=== PATIENT | female | born 1935 | race Caucasian/White ===

== ENCOUNTER 2018-01-22 08:50 | Day surgery (SDC) | payer OTHER ==
[~2018-01-22] VITALS: Ht 149.9 cm; Wt 47.0 kg
[~2018-01-22 08:50] MED LIST: ALEN70 PO; ASPI81EC PO; ATEN100 PO; CALCAVITD PO; CARV3.125 PO; CELE200 PO; CEPH500 PO; CHOL10002 PO; CIPR500 PO; DULO30 PO; ELIQUIS2.5 MG PO; I-CAPS WITH LU1 EACH PO; LOVA20 PO; LOW DOSE ASPIRI81 MG PO; Lovastatin20 MG PO; NIFE30ER PO; OMEP20ER PO; Prozac40 MG PO; SPIR25 PO; TROSPIUM CHLORI20 MG PO; WARF5 PO
[2018-01-22 09:30] LABS: BASOPHILS ABSOLUTE AUTO 0.03 K/mm3 (0.00-0.23); BASOPHILS PERCENT AUTO 0 % (0-2); EOSINOPHILS ABSOLUTE AUTO 0.21 K/mm3 (0.00-0.68); EOSINOPHILS PERCENT AUTO 3 % (0-6); Hematocrit 32.2 % (33.0-51.0); Hemoglobin 10.1 g/dL (11.5-16.0); IMMATURE GRAN ABSOLUTE AUTO 0.02 K/mm3 (0.00-0.10); IMMATURE GRAN PERCENT AUTO 0 % (0-1); LYMPHOCYTES ABSOLUTE AUTO 3.14 K/mm3 (0.84-5.20); LYMPHOCYTES PERCENT AUTO 37 % (21-46); MONOCYTES ABSOLUTE AUTO 0.77 K/mm3 (0.16-1.47); MONOCYTES PERCENT AUTO 9 % (4-13); Mean Corpuscular HGB 28.6 pg (26.0-34.0); Mean Corpuscular HGB Conc 31.4 g/dL (31.5-36.5); Mean Corpuscular Volume 91 fL (80-100); Mean Platelet Volume 10.2 fL (9.1-12.4); NEUTROPHILS ABSOLUTE AUTO 4.23 K/mm3 (1.96-9.15); NEUTROPHILS PERCENT AUTO 50 % (41-73); Platelet Count 339 K/mm3 (150-400); RDW Coefficient Variation 13.4 % (11.7-14.2); RDW Standard Deviation 44.4 fL (35.1-46.3); Red Blood Cell Count 3.53 M/mm3 (3.80-5.20)
[2018-01-22 09:41] LABS: International Normalized Ratio 1.02; Prothrombin Time Results 10.6 Sec (9.7-11.5)
[2018-01-22 10:17] LABS: Anion Gap 6 mmol/L (6-16); Blood Urea Nitrogen 21 mg/dL (8-24); Bun/Creatinine Ratio 24.2 (12.0-20.0); CO2, Blood 29 mmol/L (21-32); Calcium, Blood 8.6 mg/dL (8.5-10.1); Chloride, Blood 108 mmol/L (98-108); Creatinine, Blood 0.87 mg/dL (0.40-1.00); Glomerular Filtration Rate >60 (60-); Glucose, Blood 112 mg/dL (70-99); Magnesium, Blood 1.9 mg/dL (1.6-2.4); Potassium, Blood 4.1 mmol/L (3.5-5.5); Sodium, Blood 143 mmol/L (136-145)
[2018-01-22] MEDS ORDERED: Prilosec Otc20 MG PO (11:03)
[2018-01-22] MEDS ORDERED: Amiodarone HCl200 MG PO (12:31)
[2018-02-23] MEDS ORDERED: TROSPIUM CHLORI20 MG PO (13:02)
[2018-02-23] MEDS ORDERED: CELE200 PO (13:03)
== END 2018-01-22 13:18 | disposition home or self-care (01) ==
LOC: MHTC 08:50
PROVIDERS: Internal Medicine Cardiovascular Disease
PROC: 5A2204Z Restoration of Cardiac Rhythm, Single (ICD-10-PCS; principal; 2018-01-22)
DX: I48.92 Unspecified atrial flutter (principal); Z86.73 Personal history of transient ischemic attack (TIA), and cerebral infarction without residual deficits; I10 Essential (primary) hypertension
CPT/HCPCS: 36415; 80048; 83735; 85025; 85610; 92960; 93005; 93010; 93312; 93325; J0282; J2250; J7120

== ENCOUNTER 2018-02-20 17:11 | Emergency (ER) | payer OTHER ==
[~2018-02-20] VITALS: Ht 144.8 cm; Wt 43.1 kg
[~2018-02-20 17:11] MED LIST changes: +Amiodarone HCl200 MG PO; +Prilosec Otc20 MG PO
[2018-02-20 18:18] LABS: BASOPHILS ABSOLUTE AUTO 0.04 K/mm3 (0.00-0.23); BASOPHILS PERCENT AUTO 0 % (0-2); EOSINOPHILS ABSOLUTE AUTO 0.33 K/mm3 (0.00-0.68); EOSINOPHILS PERCENT AUTO 3 % (0-6); IMMATURE GRAN ABSOLUTE AUTO 0.04 K/mm3 (0.00-0.10); IMMATURE GRAN PERCENT AUTO 0 % (0-1); LYMPHOCYTES ABSOLUTE AUTO 2.17 K/mm3 (0.84-5.20); LYMPHOCYTES PERCENT AUTO 21 % (21-46); MONOCYTES ABSOLUTE AUTO 1.03 K/mm3 (0.16-1.47); MONOCYTES PERCENT AUTO 10 % (4-13); Mean Corpuscular HGB 25.4 pg (26.0-34.0); Mean Corpuscular Volume 85 fL (80-100); Mean Platelet Volume 9.8 fL (9.1-12.4); NEUTROPHILS ABSOLUTE AUTO 6.73 K/mm3 (1.96-9.15); NEUTROPHILS PERCENT AUTO 65 % (41-73); Platelet Count 521 K/mm3 (150-400); RDW Coefficient Variation 13.8 % (11.7-14.2); RDW Standard Deviation 43.2 fL (35.1-46.3); Red Blood Cell Count 3.55 M/mm3 (3.80-5.20); White Blood Cell Count 10.34 K/mm3 (4.00-11.30)
[2018-02-20 18:31] LABS: Alanine Aminotransfer (ALT/SGP 14 U/L (12-78); Albumin, Blood 3.5 g/dL (3.4-5.0); Albumin/Globulin Ratio 0.9 (0.8-1.8); Alk Phos 137 U/L (50-136); Anion Gap 10 mmol/L (6-16); Aspartate Aminotrans (AST/SGOT 17 U/L (12-37); Bilirubin, Total 0.3 mg/dL (0.1-1.0); Blood Urea Nitrogen 18 mg/dL (8-24); Bun/Creatinine Ratio 16.5 (12.0-20.0); CO2, Blood 25 mmol/L (21-32); Calcium, Blood 8.7 mg/dL (8.5-10.1); Chloride, Blood 104 mmol/L (98-108); Creatinine, Blood 1.09 mg/dL (0.40-1.00); Globulin, Blood 3.9 g/dL (2.2-4.0); Glomerular Filtration Rate 51 (60-); Glucose, Blood 125 mg/dL (70-99); Potassium, Blood 3.9 mmol/L (3.5-5.5); Sodium, Blood 139 mmol/L (136-145); Total Protein, Blood 7.4 g/dL (6.4-8.2); Troponin I <0.015 ng/mL (0.000-0.040)
[2018-02-23] MEDS ORDERED: TROSPIUM CHLORI20 MG PO (13:02)
[2018-02-23] MEDS ORDERED: CELE200 PO (13:03)
== END 2018-02-20 22:29 | disposition left against medical advice (07) ==
LOC: ER 17:11
PROVIDERS: Emergency Medicine
DX: Z53.21 Procedure and treatment not carried out due to patient leaving prior to being seen by health care provider (principal)
CPT/HCPCS: 36415; 71046; 80053; 83880; 84484; 85025; 93005; 93010; 99283

== ENCOUNTER 2018-02-26 09:42 | Day surgery (SDC) | payer OTHER ==
[~2018-02-26] VITALS: Ht 147.3 cm; Wt 45.0 kg
== END 2018-02-26 23:19 | disposition home or self-care (01) ==
LOC: MHTC 09:42
PROC: 5A2204Z Restoration of Cardiac Rhythm, Single (ICD-10-PCS; principal; 2018-02-26)
DX: I48.91 Unspecified atrial fibrillation (principal); Z79.01 Long term (current) use of anticoagulants; I10 Essential (primary) hypertension; E78.5 Hyperlipidemia, unspecified
CPT/HCPCS: 92960; 93005; 93010; J7030

== ENCOUNTER 2018-03-23 18:08 | Inpatient (IN) | payer OTHER ==
[~2018-03-23] VITALS: Ht 154.9 cm; Wt 39.0 kg
[2018-03-23 18:34] LABS: PO2 Arterial 60.8 mmHg (80-100); pH Blood Arterial 7.52 (7.35-7.45)
[2018-03-23 18:35] LABS: PCO2 Arterial 19.3 mmHg (35-45)
[2018-03-23] MEDS ORDERED: Amiodarone HCl200 MG PO (18:36)
[2018-03-23] MEDS ORDERED: ABAT250V (18:37)
[2018-03-23] MEDS ORDERED: METO25ER PO (18:37)
[2018-03-23 19:13] LABS: Influenza A Negative (NEGATIVE); Influenza B Negative (NEGATIVE)
[2018-03-23 19:38] LABS: BASOPHILS ABSOLUTE AUTO 0.03 K/mm3 (0.00-0.23); BASOPHILS PERCENT AUTO 0 % (0-2); EOSINOPHILS PERCENT AUTO 0 % (0-6); Hemoglobin 6.8 g/dL (11.5-16.0); IMMATURE GRAN ABSOLUTE AUTO 0.19 K/mm3 (0.00-0.10); IMMATURE GRAN PERCENT AUTO 1 % (0-1); LYMPHOCYTES ABSOLUTE AUTO 1.49 K/mm3 (0.84-5.20); LYMPHOCYTES PERCENT AUTO 8 % (21-46); MONOCYTES ABSOLUTE AUTO 1.53 K/mm3 (0.16-1.47); MONOCYTES PERCENT AUTO 8 % (4-13); Mean Corpuscular HGB Conc 28.3 g/dL (31.5-36.5); Mean Corpuscular Volume 78 fL (80-100); Mean Platelet Volume 10.7 fL (9.1-12.4); NEUTROPHILS ABSOLUTE AUTO 15.18 K/mm3 (1.96-9.15); NEUTROPHILS PERCENT AUTO 82 % (41-73); NRBC ABSOLUTE 0.19 K/mm3 (0.00-0.02); Platelet Count 557 K/mm3 (150-400); RDW Coefficient Variation 16.6 % (11.7-14.2); RDW Standard Deviation 46.5 fL (35.1-46.3); Red Blood Cell Count 3.09 M/mm3 (3.80-5.20); White Blood Cell Count 18.42 K/mm3 (4.00-11.30)
[2018-03-23 19:52] LABS: Albumin, Blood 2.8 g/dL (3.4-5.0); Albumin/Globulin Ratio 0.7 (0.8-1.8); Bilirubin, Total 0.9 mg/dL (0.1-1.0); Bun/Creatinine Ratio 23.6 (12.0-20.0); Calcium, Blood 8.2 mg/dL (8.5-10.1); Creatinine, Blood 1.06 mg/dL (0.40-1.00); Magnesium, Blood 2.2 mg/dL (1.6-2.4); Potassium, Blood 4.2 mmol/L (3.5-5.5); Total Protein, Blood 6.8 g/dL (6.4-8.2); Troponin I 0.024 ng/mL (0.000-0.040)
[2018-03-23 19:58] LABS: Source, Urine Catheter
[2018-03-23 20:06] LABS: Bilirubin, Urine Neg (Neg); Blood, Urine Neg (Neg); Glucose Qualitative, Urine Neg (Neg); Ketones, Urine Neg (Neg); Leukocyte Esterase, Urine Neg (Neg); Nitrite, Urine Pos (Neg); Protein, Urine 2+ (Neg); Urobilinogen, Urine 1+ (Normal)
[2018-03-23 20:14] LABS: Appearance, Urine Hazy (Clear); Color, Urine Yellow (P-Yellow); Red Blood Cells, Urine Not Seen /hpf (0-2)
[2018-03-23 20:15] LABS: Amorphous Mod (0-Heavy); Bacteria Many /hpf; Squamous Epithelial Cells Not Seen /hpf (Few)
[2018-03-23 20:52] LABS: International Normalized Ratio 1.53; Prothrombin Time Results 16.1 Sec (9.7-11.5)
[2018-03-23 21:44] LABS: Percent Saturation 2.7 % (15.0-50.0)
[2018-03-24 05:42] LABS: BASOPHILS ABSOLUTE AUTO 0.02 K/mm3 (0.00-0.23); BASOPHILS PERCENT AUTO 0 % (0-2); EOSINOPHILS PERCENT AUTO 0 % (0-6); Hematocrit 29.3 % (33.0-51.0); Hemoglobin 9.1 g/dL (11.5-16.0); IMMATURE GRAN ABSOLUTE AUTO 0.12 K/mm3 (0.00-0.10); IMMATURE GRAN PERCENT AUTO 1 % (0-1); LYMPHOCYTES ABSOLUTE AUTO 1.58 K/mm3 (0.84-5.20); LYMPHOCYTES PERCENT AUTO 9 % (21-46); MONOCYTES ABSOLUTE AUTO 1.29 K/mm3 (0.16-1.47); MONOCYTES PERCENT AUTO 7 % (4-13); Mean Corpuscular HGB 23.6 pg (26.0-34.0); Mean Corpuscular HGB Conc 31.1 g/dL (31.5-36.5); Mean Corpuscular Volume 76 fL (80-100); Mean Platelet Volume 10.2 fL (9.1-12.4); NEUTROPHILS ABSOLUTE AUTO 15.09 K/mm3 (1.96-9.15); NEUTROPHILS PERCENT AUTO 83 % (41-73); NRBC ABSOLUTE 0.17 K/mm3 (0.00-0.02); NRBC Auto 0.9 /100 WBC (0.0-0.2); Platelet Count 403 K/mm3 (150-400); RDW Coefficient Variation 16.5 % (11.7-14.2); RDW Standard Deviation 45.2 fL (35.1-46.3); Red Blood Cell Count 3.85 M/mm3 (3.80-5.20)
[2018-03-24 06:02] LABS: Albumin, Blood 2.6 g/dL (3.4-5.0); Albumin/Globulin Ratio 0.7 (0.8-1.8); Bilirubin, Total 2.8 mg/dL (0.1-1.0); Calcium, Blood 7.8 mg/dL (8.5-10.1); Globulin, Blood 3.7 g/dL (2.2-4.0); Magnesium, Blood 2.5 mg/dL (1.6-2.4); Phosphorus, Blood 3.8 mg/dL (2.5-4.9); Potassium, Blood 4.1 mmol/L (3.5-5.5); Total Protein, Blood 6.3 g/dL (6.4-8.2)
[2018-03-24 13:17] LABS: Percent Saturation 47.9 % (15.0-50.0)
[2018-03-25 08:58] LABS: PCO2 Arterial 31.6 mmHg (35-45); PO2 Arterial 57.8 mmHg (80-100); pH Blood Arterial 7.44 (7.35-7.45)
[2018-03-25 09:22] LABS: Hematocrit 32.2 % (33.0-51.0); Hemoglobin 9.6 g/dL (11.5-16.0); Mean Corpuscular HGB 23.6 pg (26.0-34.0); Mean Corpuscular HGB Conc 29.8 g/dL (31.5-36.5); Mean Platelet Volume 10.5 fL (9.1-12.4); NRBC ABSOLUTE 0.18 K/mm3 (0.00-0.02); NRBC Auto 0.9 /100 WBC (0.0-0.2); Platelet Count 392 K/mm3 (150-400); RDW Coefficient Variation 17.2 % (11.7-14.2); RDW Standard Deviation 48.5 fL (35.1-46.3); Red Blood Cell Count 4.06 M/mm3 (3.80-5.20); White Blood Cell Count 21.04 K/mm3 (4.00-11.30)
[2018-03-25 09:23] LABS: Mean Corpuscular Volume 79 fL (80-100)
[2018-03-25 09:38] LABS: Magnesium, Blood 2.4 mg/dL (1.6-2.4)
[2018-03-25 09:39] LABS: Albumin, Blood 2.7 g/dL (3.4-5.0); Anion Gap 11 mmol/L (6-16); Blood Urea Nitrogen 37 mg/dL (8-24); Bun/Creatinine Ratio 39.2 (12.0-20.0); CO2, Blood 22 mmol/L (21-32); Calcium, Blood 7.9 mg/dL (8.5-10.1); Chloride, Blood 112 mmol/L (98-108); Creatinine, Blood 0.94 mg/dL (0.40-1.00); Glomerular Filtration Rate 60 (60-); Glucose, Blood 135 mg/dL (70-99); Phosphorus, Blood 2.7 mg/dL (2.5-4.9); Potassium, Blood 3.6 mmol/L (3.5-5.5); Sodium, Blood 145 mmol/L (136-145)
[2018-03-25 18:10] LABS: PCO2 Arterial 29.8 mmHg (35-45); PO2 Arterial 50.8 mmHg (80-100)
[2018-03-26 21:21] LABS: Vancomycin, Trough 4.5 ug/mL (5.0-10.0)
[2018-03-27 04:08] LABS: Hemoglobin 10.4 g/dL (11.5-16.0); Mean Corpuscular HGB 23.1 pg (26.0-34.0); Mean Corpuscular HGB Conc 29.7 g/dL (31.5-36.5); Mean Corpuscular Volume 78 fL (80-100); Mean Platelet Volume 10.6 fL (9.1-12.4); NRBC ABSOLUTE 0.02 K/mm3 (0.00-0.02); NRBC Auto 0.1 /100 WBC (0.0-0.2); Platelet Count 390 K/mm3 (150-400); RDW Coefficient Variation 18.8 % (11.7-14.2); RDW Standard Deviation 49.3 fL (35.1-46.3); Red Blood Cell Count 4.51 M/mm3 (3.80-5.20); White Blood Cell Count 14.29 K/mm3 (4.00-11.30)
[2018-03-27 04:26] LABS: Anion Gap 9 mmol/L (6-16); Blood Urea Nitrogen 30 mg/dL (8-24); Bun/Creatinine Ratio 35.5 (12.0-20.0); CO2, Blood 29 mmol/L (21-32); Calcium, Blood 7.9 mg/dL (8.5-10.1); Chloride, Blood 108 mmol/L (98-108); Creatinine, Blood 0.85 mg/dL (0.40-1.00); Glomerular Filtration Rate >60 (60-); Glucose, Blood 94 mg/dL (70-99); Potassium, Blood 2.6 mmol/L (3.5-5.5); Sodium, Blood 146 mmol/L (136-145)
[2018-03-28 04:08] LABS: Hematocrit 33.7 % (33.0-51.0); Hemoglobin 9.9 g/dL (11.5-16.0); Mean Corpuscular HGB 23.1 pg (26.0-34.0); Mean Corpuscular HGB Conc 29.4 g/dL (31.5-36.5); Mean Corpuscular Volume 79 fL (80-100); Mean Platelet Volume 10.3 fL (9.1-12.4); NRBC ABSOLUTE 0.02 K/mm3 (0.00-0.02); NRBC Auto 0.1 /100 WBC (0.0-0.2); Platelet Count 380 K/mm3 (150-400); RDW Coefficient Variation 18.9 % (11.7-14.2); RDW Standard Deviation 51.3 fL (35.1-46.3); Red Blood Cell Count 4.28 M/mm3 (3.80-5.20); White Blood Cell Count 14.14 K/mm3 (4.00-11.30)
[2018-03-28 04:40] LABS: Anion Gap 7 mmol/L (6-16); Blood Urea Nitrogen 27 mg/dL (8-24); Bun/Creatinine Ratio 34.1 (12.0-20.0); CO2, Blood 28 mmol/L (21-32); Chloride, Blood 112 mmol/L (98-108); Creatinine, Blood 0.79 mg/dL (0.40-1.00); Glomerular Filtration Rate >60 (60-); Glucose, Blood 104 mg/dL (70-99); Potassium, Blood 3.5 mmol/L (3.5-5.5); Sodium, Blood 147 mmol/L (136-145)
[2018-03-28 10:50] LABS: Vancomycin, Trough 14.6 ug/mL (5.0-10.0)
[2018-03-29 10:33] LABS: Creatinine, Blood 0.72 mg/dL (0.40-1.00); Vancomycin, Trough 17.1 ug/mL (5.0-10.0)
[2018-03-29 12:10] LABS: PCO2 Arterial 33.8 mmHg (35-45); PO2 Arterial 53.8 mmHg (80-100)
[2018-03-30 06:08] LABS: Hematocrit 32.8 % (33.0-51.0); Hemoglobin 9.6 g/dL (11.5-16.0); Mean Corpuscular HGB 23.3 pg (26.0-34.0); Mean Corpuscular HGB Conc 29.3 g/dL (31.5-36.5); Mean Corpuscular Volume 80 fL (80-100); Mean Platelet Volume 10.3 fL (9.1-12.4); Platelet Count 342 K/mm3 (150-400); RDW Coefficient Variation 19.4 % (11.7-14.2); RDW Standard Deviation 54.9 fL (35.1-46.3); Red Blood Cell Count 4.12 M/mm3 (3.80-5.20); White Blood Cell Count 11.78 K/mm3 (4.00-11.30)
[2018-03-30 06:14] LABS: Anion Gap 7 mmol/L (6-16); Blood Urea Nitrogen 25 mg/dL (8-24); Bun/Creatinine Ratio 37.7 (12.0-20.0); CO2, Blood 26 mmol/L (21-32); Calcium, Blood 8.1 mg/dL (8.5-10.1); Chloride, Blood 109 mmol/L (98-108); Creatinine, Blood 0.66 mg/dL (0.40-1.00); Glomerular Filtration Rate >60 (60-); Glucose, Blood 140 mg/dL (70-99); Potassium, Blood 4.3 mmol/L (3.5-5.5); Sodium, Blood 142 mmol/L (136-145)
[2018-03-31 03:53] LABS: BASOPHILS ABSOLUTE AUTO 0.02 K/mm3 (0.00-0.23); BASOPHILS PERCENT AUTO 0 % (0-2); EOSINOPHILS ABSOLUTE AUTO 0.01 K/mm3 (0.00-0.68); EOSINOPHILS PERCENT AUTO 0 % (0-6); Hematocrit 32.9 % (33.0-51.0); Hemoglobin 9.7 g/dL (11.5-16.0); IMMATURE GRAN ABSOLUTE AUTO 0.26 K/mm3 (0.00-0.10); IMMATURE GRAN PERCENT AUTO 1 % (0-1); LYMPHOCYTES ABSOLUTE AUTO 1.55 K/mm3 (0.84-5.20); LYMPHOCYTES PERCENT AUTO 7 % (21-46); MONOCYTES ABSOLUTE AUTO 1.21 K/mm3 (0.16-1.47); MONOCYTES PERCENT AUTO 5 % (4-13); Mean Corpuscular HGB 22.9 pg (26.0-34.0); Mean Corpuscular HGB Conc 29.5 g/dL (31.5-36.5); Mean Corpuscular Volume 78 fL (80-100); Mean Platelet Volume 10.7 fL (9.1-12.4); NEUTROPHILS ABSOLUTE AUTO 19.55 K/mm3 (1.96-9.15); NEUTROPHILS PERCENT AUTO 86 % (41-73); Platelet Count 426 K/mm3 (150-400); RDW Coefficient Variation 19.6 % (11.7-14.2); RDW Standard Deviation 53.1 fL (35.1-46.3); Red Blood Cell Count 4.23 M/mm3 (3.80-5.20)
[2018-03-31 04:09] LABS: Albumin, Blood 1.8 g/dL (3.4-5.0); Anion Gap 7 mmol/L (6-16); Blood Urea Nitrogen 31 mg/dL (8-24); Bun/Creatinine Ratio 42.4 (12.0-20.0); CO2, Blood 26 mmol/L (21-32); Chloride, Blood 110 mmol/L (98-108); Creatinine, Blood 0.73 mg/dL (0.40-1.00); Glomerular Filtration Rate >60 (60-); Glucose, Blood 124 mg/dL (70-99); Phosphorus, Blood 3.4 mg/dL (2.5-4.9); Potassium, Blood 3.8 mmol/L (3.5-5.5); Sodium, Blood 143 mmol/L (136-145)
[2018-03-31 10:39] LABS: Vancomycin, Trough 20.9 ug/mL (5.0-10.0)
[2018-04-01 06:09] LABS: BASOPHILS ABSOLUTE AUTO 0.03 K/mm3 (0.00-0.23); BASOPHILS PERCENT AUTO 0 % (0-2); EOSINOPHILS ABSOLUTE AUTO 0.03 K/mm3 (0.00-0.68); EOSINOPHILS PERCENT AUTO 0 % (0-6); Hemoglobin 9.8 g/dL (11.5-16.0); IMMATURE GRAN ABSOLUTE AUTO 0.25 K/mm3 (0.00-0.10); IMMATURE GRAN PERCENT AUTO 1 % (0-1); LYMPHOCYTES ABSOLUTE AUTO 1.54 K/mm3 (0.84-5.20); LYMPHOCYTES PERCENT AUTO 7 % (21-46); MONOCYTES PERCENT AUTO 4 % (4-13); Mean Corpuscular HGB 23.4 pg (26.0-34.0); Mean Corpuscular HGB Conc 29.7 g/dL (31.5-36.5); Mean Corpuscular Volume 79 fL (80-100); Mean Platelet Volume 10.1 fL (9.1-12.4); NEUTROPHILS ABSOLUTE AUTO 18.05 K/mm3 (1.96-9.15); NEUTROPHILS PERCENT AUTO 87 % (41-73); Platelet Count 440 K/mm3 (150-400); RDW Coefficient Variation 19.7 % (11.7-14.2); RDW Standard Deviation 55.5 fL (35.1-46.3); Red Blood Cell Count 4.19 M/mm3 (3.80-5.20)
[2018-04-01 06:23] LABS: Albumin, Blood 1.8 g/dL (3.4-5.0); Anion Gap 7 mmol/L (6-16); Blood Urea Nitrogen 33 mg/dL (8-24); Bun/Creatinine Ratio 46.6 (12.0-20.0); CO2, Blood 26 mmol/L (21-32); Calcium, Blood 8.1 mg/dL (8.5-10.1); Chloride, Blood 112 mmol/L (98-108); Creatinine, Blood 0.71 mg/dL (0.40-1.00); Glomerular Filtration Rate >60 (60-); Glucose, Blood 92 mg/dL (70-99); Phosphorus, Blood 2.8 mg/dL (2.5-4.9); Potassium, Blood 3.5 mmol/L (3.5-5.5); Sodium, Blood 145 mmol/L (136-145)
[2018-04-02 05:09] LABS: BASOPHILS ABSOLUTE AUTO 0.02 K/mm3 (0.00-0.23); BASOPHILS PERCENT AUTO 0 % (0-2); EOSINOPHILS ABSOLUTE AUTO 0.04 K/mm3 (0.00-0.68); EOSINOPHILS PERCENT AUTO 0 % (0-6); Hematocrit 32.7 % (33.0-51.0); Hemoglobin 9.6 g/dL (11.5-16.0); IMMATURE GRAN ABSOLUTE AUTO 0.19 K/mm3 (0.00-0.10); IMMATURE GRAN PERCENT AUTO 1 % (0-1); LYMPHOCYTES ABSOLUTE AUTO 1.48 K/mm3 (0.84-5.20); LYMPHOCYTES PERCENT AUTO 9 % (21-46); MONOCYTES ABSOLUTE AUTO 0.88 K/mm3 (0.16-1.47); MONOCYTES PERCENT AUTO 5 % (4-13); Mean Corpuscular HGB 22.8 pg (26.0-34.0); Mean Corpuscular HGB Conc 29.4 g/dL (31.5-36.5); Mean Corpuscular Volume 78 fL (80-100); Mean Platelet Volume 10.2 fL (9.1-12.4); NEUTROPHILS ABSOLUTE AUTO 13.83 K/mm3 (1.96-9.15); NEUTROPHILS PERCENT AUTO 84 % (41-73); Platelet Count 452 K/mm3 (150-400); RDW Coefficient Variation 20.1 % (11.7-14.2); RDW Standard Deviation 55.4 fL (35.1-46.3); Red Blood Cell Count 4.21 M/mm3 (3.80-5.20); White Blood Cell Count 16.44 K/mm3 (4.00-11.30)
[2018-04-02 05:24] LABS: Albumin, Blood 1.8 g/dL (3.4-5.0); Anion Gap 7 mmol/L (6-16); Blood Urea Nitrogen 28 mg/dL (8-24); Bun/Creatinine Ratio 42.7 (12.0-20.0); CO2, Blood 26 mmol/L (21-32); Calcium, Blood 7.8 mg/dL (8.5-10.1); Chloride, Blood 111 mmol/L (98-108); Creatinine, Blood 0.66 mg/dL (0.40-1.00); Glomerular Filtration Rate >60 (60-); Glucose, Blood 89 mg/dL (70-99); Phosphorus, Blood 2.8 mg/dL (2.5-4.9); Potassium, Blood 3.7 mmol/L (3.5-5.5); Sodium, Blood 144 mmol/L (136-145)
[2018-04-03 04:35] LABS: BASOPHILS ABSOLUTE AUTO 0.02 K/mm3 (0.00-0.23); BASOPHILS PERCENT AUTO 0 % (0-2); EOSINOPHILS ABSOLUTE AUTO 0.02 K/mm3 (0.00-0.68); EOSINOPHILS PERCENT AUTO 0 % (0-6); Hematocrit 33.4 % (33.0-51.0); Hemoglobin 9.8 g/dL (11.5-16.0); IMMATURE GRAN ABSOLUTE AUTO 0.21 K/mm3 (0.00-0.10); IMMATURE GRAN PERCENT AUTO 1 % (0-1); LYMPHOCYTES ABSOLUTE AUTO 1.43 K/mm3 (0.84-5.20); LYMPHOCYTES PERCENT AUTO 8 % (21-46); MONOCYTES ABSOLUTE AUTO 1.01 K/mm3 (0.16-1.47); MONOCYTES PERCENT AUTO 6 % (4-13); Mean Corpuscular HGB 22.7 pg (26.0-34.0); Mean Corpuscular HGB Conc 29.3 g/dL (31.5-36.5); Mean Corpuscular Volume 77 fL (80-100); Mean Platelet Volume 10.1 fL (9.1-12.4); NEUTROPHILS ABSOLUTE AUTO 15.01 K/mm3 (1.96-9.15); NEUTROPHILS PERCENT AUTO 85 % (41-73); Platelet Count 498 K/mm3 (150-400); RDW Coefficient Variation 19.9 % (11.7-14.2); RDW Standard Deviation 54.3 fL (35.1-46.3); Red Blood Cell Count 4.32 M/mm3 (3.80-5.20)
[2018-04-03 14:10] LABS: ANA DIRECT Negative (Negative); ANTIMYELOPEROXIDASE (MPO) ABS <9.0 U/mL (0.0-9.0); ANTIPROTEINASE 3 (PR-3) ABS <3.5 U/mL (0.0-3.5); ATYPICAL PANCA <1:20 titer (Neg:<1:20); CYTOPLASMIC (C-ANCA) <1:20 titer (Neg:<1:20); PERINUCLEAR (P-ANCA) <1:20 titer (Neg:<1:20)
[2018-04-05 03:56] LABS: Hematocrit 33.1 % (33.0-51.0); Hemoglobin 9.8 g/dL (11.5-16.0); Mean Corpuscular HGB Conc 29.6 g/dL (31.5-36.5); Mean Corpuscular Volume 78 fL (80-100); Platelet Count 588 K/mm3 (150-400); RDW Coefficient Variation 19.9 % (11.7-14.2); RDW Standard Deviation 55.3 fL (35.1-46.3); Red Blood Cell Count 4.27 M/mm3 (3.80-5.20); White Blood Cell Count 16.56 K/mm3 (4.00-11.30)
[2018-04-05 04:19] LABS: Anion Gap 6 mmol/L (6-16); Blood Urea Nitrogen 34 mg/dL (8-24); Bun/Creatinine Ratio 45.5 (12.0-20.0); CO2, Blood 28 mmol/L (21-32); Calcium, Blood 7.7 mg/dL (8.5-10.1); Chloride, Blood 107 mmol/L (98-108); Creatinine, Blood 0.75 mg/dL (0.40-1.00); Glomerular Filtration Rate >60 (60-); Glucose, Blood 104 mg/dL (70-99); Potassium, Blood 3.9 mmol/L (3.5-5.5); Sodium, Blood 141 mmol/L (136-145)
[2018-04-05 19:00] LABS: Adenovirus Not Detected (NOT DETECT); Bordetella pertussis Not Detected (NOT DETECT); Chlamydophila pneumoniae Not Detected (NOT DETECT); Coronavirus 229E Not Detected (NOT DETECT); Coronavirus HKU1 Not Detected (NOT DETECT); Coronavirus NL63 Not Detected (NOT DETECT); Coronavirus OC43 Not Detected (NOT DETECT); Human Metapneumovirus Not Detected (NOT DETECT); Human Rhinovirus/Enterovirus Not Detected (NOT DETECT); Influenza A/2009-H1 Not Detected (NOT DETECT); Influenza A/H1 Not Detected (NOT DETECT); Influenza A/H3 Not Detected (NOT DETECT); Influenza B Not Detected (NOT DETECT); Mycoplasma pneumoniae Not Detected (NOT DETECT); Parainfluenza Virus 1 Not Detected (NOT DETECT); Parainfluenza Virus 2 Not Detected (NOT DETECT); Parainfluenza Virus 3 Not Detected (NOT DETECT); Parainfluenza Virus 4 Not Detected (NOT DETECT); Respiratory Syncytial Virus Not Detected (NOT DETECT)
[2018-04-05 22:25] LABS: Influenza A Not Detected (NOT DETECT)
[2018-04-06 04:48] LABS: PCO2 Arterial 40.2 mmHg (35-45); PO2 Arterial 61.6 mmHg (80-100); pH Blood Arterial 7.47 (7.35-7.45)
[2018-04-06 04:54] LABS: BASOPHILS ABSOLUTE AUTO 0.02 K/mm3 (0.00-0.23); BASOPHILS PERCENT AUTO 0 % (0-2); EOSINOPHILS ABSOLUTE AUTO 0.01 K/mm3 (0.00-0.68); EOSINOPHILS PERCENT AUTO 0 % (0-6); Hematocrit 33.2 % (33.0-51.0); IMMATURE GRAN ABSOLUTE AUTO 0.27 K/mm3 (0.00-0.10); IMMATURE GRAN PERCENT AUTO 2 % (0-1); LYMPHOCYTES ABSOLUTE AUTO 1.38 K/mm3 (0.84-5.20); LYMPHOCYTES PERCENT AUTO 9 % (21-46); MONOCYTES ABSOLUTE AUTO 0.73 K/mm3 (0.16-1.47); MONOCYTES PERCENT AUTO 5 % (4-13); Mean Corpuscular HGB 23.5 pg (26.0-34.0); Mean Corpuscular HGB Conc 30.1 g/dL (31.5-36.5); Mean Corpuscular Volume 78 fL (80-100); NEUTROPHILS ABSOLUTE AUTO 13.26 K/mm3 (1.96-9.15); NEUTROPHILS PERCENT AUTO 85 % (41-73); Platelet Count 552 K/mm3 (150-400); RDW Coefficient Variation 20.6 % (11.7-14.2); RDW Standard Deviation 56.4 fL (35.1-46.3); Red Blood Cell Count 4.25 M/mm3 (3.80-5.20); White Blood Cell Count 15.67 K/mm3 (4.00-11.30)
[2018-04-06 06:13] LABS: Anion Gap 7 mmol/L (6-16); Blood Urea Nitrogen 33 mg/dL (8-24); Bun/Creatinine Ratio 42.7 (12.0-20.0); CO2, Blood 28 mmol/L (21-32); Calcium, Blood 8.1 mg/dL (8.5-10.1); Chloride, Blood 106 mmol/L (98-108); Creatinine, Blood 0.77 mg/dL (0.40-1.00); Glomerular Filtration Rate >60 (60-); Glucose, Blood 104 mg/dL (70-99); Potassium, Blood 5.1 mmol/L (3.5-5.5); Sodium, Blood 141 mmol/L (136-145)
[2018-04-07 04:55] LABS: Hematocrit 33.5 % (33.0-51.0); Mean Corpuscular HGB Conc 29.9 g/dL (31.5-36.5); Mean Corpuscular Volume 77 fL (80-100); Mean Platelet Volume 9.7 fL (9.1-12.4); Platelet Count 606 K/mm3 (150-400); RDW Coefficient Variation 20.1 % (11.7-14.2); RDW Standard Deviation 55.8 fL (35.1-46.3); Red Blood Cell Count 4.34 M/mm3 (3.80-5.20); White Blood Cell Count 18.66 K/mm3 (4.00-11.30)
[2018-04-07 05:19] LABS: Anion Gap 7 mmol/L (6-16); Blood Urea Nitrogen 30 mg/dL (8-24); Bun/Creatinine Ratio 36.1 (12.0-20.0); CO2, Blood 27 mmol/L (21-32); Calcium, Blood 7.7 mg/dL (8.5-10.1); Chloride, Blood 106 mmol/L (98-108); Creatinine, Blood 0.83 mg/dL (0.40-1.00); Glomerular Filtration Rate >60 (60-); Glucose, Blood 87 mg/dL (70-99); Potassium, Blood 4.2 mmol/L (3.5-5.5); Sodium, Blood 140 mmol/L (136-145)
[2018-04-08 04:07] LABS: BASOPHILS ABSOLUTE AUTO 0.02 K/mm3 (0.00-0.23); BASOPHILS PERCENT AUTO 0 % (0-2); EOSINOPHILS ABSOLUTE AUTO 0.02 K/mm3 (0.00-0.68); EOSINOPHILS PERCENT AUTO 0 % (0-6); Hematocrit 34.9 % (33.0-51.0); Hemoglobin 10.3 g/dL (11.5-16.0); IMMATURE GRAN PERCENT AUTO 1 % (0-1); LYMPHOCYTES ABSOLUTE AUTO 1.67 K/mm3 (0.84-5.20); LYMPHOCYTES PERCENT AUTO 11 % (21-46); MONOCYTES ABSOLUTE AUTO 0.89 K/mm3 (0.16-1.47); MONOCYTES PERCENT AUTO 6 % (4-13); Mean Corpuscular HGB 22.6 pg (26.0-34.0); Mean Corpuscular HGB Conc 29.5 g/dL (31.5-36.5); Mean Corpuscular Volume 77 fL (80-100); Mean Platelet Volume 9.9 fL (9.1-12.4); NEUTROPHILS PERCENT AUTO 82 % (41-73); Platelet Count 599 K/mm3 (150-400); RDW Coefficient Variation 20.9 % (11.7-14.2); RDW Standard Deviation 56.2 fL (35.1-46.3); Red Blood Cell Count 4.56 M/mm3 (3.80-5.20)
[2018-04-08 04:24] LABS: Anion Gap 5 mmol/L (6-16); Blood Urea Nitrogen 27 mg/dL (8-24); Bun/Creatinine Ratio 35.6 (12.0-20.0); CO2, Blood 27 mmol/L (21-32); Calcium, Blood 7.8 mg/dL (8.5-10.1); Chloride, Blood 106 mmol/L (98-108); Creatinine, Blood 0.76 mg/dL (0.40-1.00); Glomerular Filtration Rate >60 (60-); Glucose, Blood 93 mg/dL (70-99); Potassium, Blood 5.3 mmol/L (3.5-5.5); Sodium, Blood 138 mmol/L (136-145)
[2018-04-08 22:06] LABS: Source, Urine Clean Catch
[2018-04-08 22:12] LABS: Bilirubin, Urine Neg (Neg); Glucose Qualitative, Urine Neg (Neg); Ketones, Urine Neg (Neg); Nitrite, Urine Neg (Neg); Specific Gravity, Urine 1.015 (1.003-1.022); Urobilinogen, Urine NORM (Normal)
[2018-04-08 22:22] LABS: Blood, Urine 5+ (Neg); Leukocyte Esterase, Urine 1+ (Neg); Protein, Urine 2+ (Neg)
[2018-04-08 22:27] LABS: Appearance, Urine Hazy (Clear); Color, Urine Yellow (P-Yellow)
[2018-04-08 22:28] LABS: Bacteria Few /hpf; Red Blood Cells, Urine TNTC /hpf (0-2); Squamous Epithelial Cells Rare /hpf (Few); White Blood Cells, Urine 0-2 /hpf (0-5)
[2018-04-09 04:29] LABS: BASOPHILS ABSOLUTE AUTO 0.02 K/mm3 (0.00-0.23); BASOPHILS PERCENT AUTO 0 % (0-2); EOSINOPHILS ABSOLUTE AUTO 0.02 K/mm3 (0.00-0.68); EOSINOPHILS PERCENT AUTO 0 % (0-6); Hematocrit 34.8 % (33.0-51.0); Hemoglobin 10.4 g/dL (11.5-16.0); IMMATURE GRAN PERCENT AUTO 1 % (0-1); LYMPHOCYTES ABSOLUTE AUTO 1.59 K/mm3 (0.84-5.20); LYMPHOCYTES PERCENT AUTO 10 % (21-46); MONOCYTES ABSOLUTE AUTO 1.01 K/mm3 (0.16-1.47); MONOCYTES PERCENT AUTO 6 % (4-13); Mean Corpuscular HGB 23.1 pg (26.0-34.0); Mean Corpuscular HGB Conc 29.9 g/dL (31.5-36.5); Mean Corpuscular Volume 77 fL (80-100); Mean Platelet Volume 9.6 fL (9.1-12.4); NEUTROPHILS ABSOLUTE AUTO 13.76 K/mm3 (1.96-9.15); NEUTROPHILS PERCENT AUTO 83 % (41-73); Platelet Count 567 K/mm3 (150-400); RDW Coefficient Variation 20.7 % (11.7-14.2); RDW Standard Deviation 57.1 fL (35.1-46.3)
[2018-04-11 05:06] LABS: PCO2 Arterial 39.2 mmHg (35-45); PO2 Arterial 74.2 mmHg (80-100); pH Blood Arterial 7.47 (7.35-7.45)
[2018-04-11 05:31] LABS: BASOPHILS ABSOLUTE AUTO 0.02 K/mm3 (0.00-0.23); BASOPHILS PERCENT AUTO 0 % (0-2); EOSINOPHILS PERCENT AUTO 0 % (0-6); Hematocrit 37.2 % (33.0-51.0); Hemoglobin 11.1 g/dL (11.5-16.0); IMMATURE GRAN ABSOLUTE AUTO 0.19 K/mm3 (0.00-0.10); IMMATURE GRAN PERCENT AUTO 1 % (0-1); LYMPHOCYTES ABSOLUTE AUTO 1.41 K/mm3 (0.84-5.20); LYMPHOCYTES PERCENT AUTO 10 % (21-46); MONOCYTES ABSOLUTE AUTO 0.67 K/mm3 (0.16-1.47); MONOCYTES PERCENT AUTO 5 % (4-13); Mean Corpuscular HGB 23.2 pg (26.0-34.0); Mean Corpuscular HGB Conc 29.8 g/dL (31.5-36.5); Mean Corpuscular Volume 78 fL (80-100); Mean Platelet Volume 9.9 fL (9.1-12.4); NEUTROPHILS ABSOLUTE AUTO 12.15 K/mm3 (1.96-9.15); NEUTROPHILS PERCENT AUTO 84 % (41-73); Platelet Count 517 K/mm3 (150-400); RDW Coefficient Variation 21.3 % (11.7-14.2); RDW Standard Deviation 57.9 fL (35.1-46.3); Red Blood Cell Count 4.79 M/mm3 (3.80-5.20); White Blood Cell Count 14.44 K/mm3 (4.00-11.30)
[2018-04-11 05:48] LABS: Anion Gap 8 mmol/L (6-16); Blood Urea Nitrogen 32 mg/dL (8-24); Bun/Creatinine Ratio 38.9 (12.0-20.0); CO2, Blood 28 mmol/L (21-32); Chloride, Blood 106 mmol/L (98-108); Creatinine, Blood 0.82 mg/dL (0.40-1.00); Glomerular Filtration Rate >60 (60-); Glucose, Blood 110 mg/dL (70-99); Potassium, Blood 4.3 mmol/L (3.5-5.5); Sodium, Blood 142 mmol/L (136-145)
[2018-04-13] MEDS ORDERED: ALBU2.5V5 NEB (15:22)
[2018-04-13] MEDS ORDERED: MIRT15 PO (15:22)
[2018-04-13] MEDS ORDERED: PRED20 PO (15:23)
== END 2018-04-13 15:25 | DRG 871 ==
LOC: ER 18:08 → PCU 20:28 → MEDS 03-24 17:04 → PCU 03-25 19:24 → MEDS 04-11 15:12
PROVIDERS: Emergency Medicine; Family Medicine; Hospitalist; Internal Medicine; Internal Medicine Critical Care Medicine; Internal Medicine Pulmonary Disease; Nurse Practitioner Acute Care
DX: A41.9 Sepsis, unspecified organism (principal); J18.9 Pneumonia, unspecified organism; J96.21 Acute and chronic respiratory failure with hypoxia; J44.0 Chronic obstructive pulmonary disease with (acute) lower respiratory infection; N39.0 Urinary tract infection, site not specified; I48.92 Unspecified atrial flutter; K92.2 Gastrointestinal hemorrhage, unspecified; E87.0 Hyperosmolality and hypernatremia; E46 Unspecified protein-calorie malnutrition; Z68.1 Body mass index [BMI] 19.9 or less, adult; I50.32 Chronic diastolic (congestive) heart failure; I13.0 Hypertensive heart and chronic kidney disease with heart failure and stage 1 through stage 4 chronic kidney disease, or unspecified chronic kidney disease; B96.20 Unspecified Escherichia coli [E. coli] as the cause of diseases classified elsewhere; I48.91 Unspecified atrial fibrillation; F41.9 Anxiety disorder, unspecified; E78.5 Hyperlipidemia, unspecified; T46.2X5A Adverse effect of other antidysrhythmic drugs, initial encounter; J70.4 Drug-induced interstitial lung disorders, unspecified; I12.9 Hypertensive chronic kidney disease with stage 1 through stage 4 chronic kidney disease, or unspecified chronic kidney disease; N18.3 Chronic kidney disease, stage 3 (moderate); F32.9 Major depressive disorder, single episode, unspecified; K21.9 Gastro-esophageal reflux disease without esophagitis; D50.0 Iron deficiency anemia secondary to blood loss (chronic); R19.7 Diarrhea, unspecified; Z66 Do not resuscitate; Z79.02 Long term (current) use of antithrombotics/antiplatelets; Z85.038 Personal history of other malignant neoplasm of large intestine; Z79.899 Other long term (current) drug therapy; Z88.0 Allergy status to penicillin; Z88.2 Allergy status to sulfonamides; Z88.7 Allergy status to serum and vaccine; Z88.8 Allergy status to other drugs, medicaments and biological substances
CPT/HCPCS: 36415; 36430; 36600; 51702; 71045; 71046; 71250; 80048; 80053; 80069; 80202; 81001; 82565; 82728; 82803; 83516; 83540; 83550; 83605; 83735; 83880; 84100; 84484; 85025; 85027; 85379; 85610; 85730; 86225; 86235; 86850; 86900; 86901; 86923; 87040; 87077; 87086; 87186; 87449; 87486; 87493; 87581; 87633; 87798; 87804; 93005; 93010; 94640; 94660; 94762; 97110; 97161; 97530; 99285; C1751; G8978; G8979; J0456; J0696; J1940; J1956; J2405; J3370; J3490; J7030; J7050; P9016

== ENCOUNTER 2018-07-19 12:55 | Inpatient (IN) | payer OTHER ==
[~2018-07-19] VITALS: Ht 142.2 cm; Wt 37.9 kg
[~2018-07-19 12:55] MED LIST changes: +ABAT250V; +ALBU2.5V5 NEB; +METO25ER PO; +MIRT15 PO; +PRED20 PO
[2018-07-19 13:25] LABS: BASOPHILS ABSOLUTE AUTO 0.04 K/mm3 (0.00-0.23); BASOPHILS PERCENT AUTO 0 % (0-2); EOSINOPHILS ABSOLUTE AUTO 0.09 K/mm3 (0.00-0.68); EOSINOPHILS PERCENT AUTO 1 % (0-6); Hemoglobin 7.7 g/dL (11.5-16.0); IMMATURE GRAN ABSOLUTE AUTO 0.05 K/mm3 (0.00-0.10); IMMATURE GRAN PERCENT AUTO 1 % (0-1); LYMPHOCYTES ABSOLUTE AUTO 1.33 K/mm3 (0.84-5.20); LYMPHOCYTES PERCENT AUTO 15 % (21-46); MONOCYTES ABSOLUTE AUTO 0.93 K/mm3 (0.16-1.47); MONOCYTES PERCENT AUTO 10 % (4-13); Mean Corpuscular HGB 23.9 pg (26.0-34.0); Mean Corpuscular HGB Conc 28.5 g/dL (31.5-36.5); Mean Corpuscular Volume 84 fL (80-100); Mean Platelet Volume 9.9 fL (9.1-12.4); NEUTROPHILS ABSOLUTE AUTO 6.71 K/mm3 (1.96-9.15); NEUTROPHILS PERCENT AUTO 73 % (41-73); Platelet Count 396 K/mm3 (150-400); RDW Coefficient Variation 16.2 % (11.7-14.2); RDW Standard Deviation 50.3 fL (35.1-46.3); Red Blood Cell Count 3.22 M/mm3 (3.80-5.20); White Blood Cell Count 9.15 K/mm3 (4.00-11.30)
[2018-07-19 13:51] LABS: Alanine Aminotransfer (ALT/SGP 14 U/L (12-78); Albumin, Blood 2.7 g/dL (3.4-5.0); Albumin/Globulin Ratio 0.7 (0.8-1.8); Alk Phos 69 U/L (50-136); Anion Gap 10 mmol/L (6-16); Aspartate Aminotrans (AST/SGOT 17 U/L (12-37); Bilirubin, Total 0.4 mg/dL (0.1-1.0); Blood Urea Nitrogen 13 mg/dL (8-24); Bun/Creatinine Ratio 15.5 (12.0-20.0); CO2, Blood 23 mmol/L (21-32); Calcium, Blood 8.1 mg/dL (8.5-10.1); Chloride, Blood 108 mmol/L (98-108); Creatinine, Blood 0.84 mg/dL (0.40-1.00); Glomerular Filtration Rate >60 (60-); Glucose, Blood 113 mg/dL (70-99); Potassium, Blood 3.7 mmol/L (3.5-5.5); Sodium, Blood 141 mmol/L (136-145); Total Protein, Blood 6.7 g/dL (6.4-8.2)
[2018-07-19 16:05] LABS: Percent Saturation 3.2 % (15.0-50.0)
[2018-07-20 04:55] LABS: BASOPHILS ABSOLUTE AUTO 0.07 K/mm3 (0.00-0.23); BASOPHILS PERCENT AUTO 1 % (0-2); EOSINOPHILS ABSOLUTE AUTO 0.19 K/mm3 (0.00-0.68); EOSINOPHILS PERCENT AUTO 1 % (0-6); Hematocrit 25.6 % (33.0-51.0); Hemoglobin 7.4 g/dL (11.5-16.0); IMMATURE GRAN ABSOLUTE AUTO 0.07 K/mm3 (0.00-0.10); IMMATURE GRAN PERCENT AUTO 1 % (0-1); LYMPHOCYTES ABSOLUTE AUTO 1.52 K/mm3 (0.84-5.20); LYMPHOCYTES PERCENT AUTO 11 % (21-46); MONOCYTES ABSOLUTE AUTO 0.97 K/mm3 (0.16-1.47); MONOCYTES PERCENT AUTO 7 % (4-13); Mean Corpuscular HGB 23.5 pg (26.0-34.0); Mean Corpuscular HGB Conc 28.9 g/dL (31.5-36.5); Mean Platelet Volume 9.8 fL (9.1-12.4); NEUTROPHILS ABSOLUTE AUTO 10.48 K/mm3 (1.96-9.15); NEUTROPHILS PERCENT AUTO 79 % (41-73); Platelet Count 391 K/mm3 (150-400); RDW Coefficient Variation 16.4 % (11.7-14.2); RDW Standard Deviation 48.9 fL (35.1-46.3); Red Blood Cell Count 3.15 M/mm3 (3.80-5.20)
[2018-07-20 05:05] LABS: Mean Corpuscular Volume 81 fL (80-100)
[2018-07-20 05:22] LABS: Alanine Aminotransfer (ALT/SGP 11 U/L (12-78); Albumin, Blood 2.5 g/dL (3.4-5.0); Albumin/Globulin Ratio 0.7 (0.8-1.8); Alk Phos 66 U/L (50-136); Anion Gap 9 mmol/L (6-16); Aspartate Aminotrans (AST/SGOT 15 U/L (12-37); Bilirubin, Total 0.5 mg/dL (0.1-1.0); Blood Urea Nitrogen 16 mg/dL (8-24); Bun/Creatinine Ratio 17.3 (12.0-20.0); CO2, Blood 22 mmol/L (21-32); Calcium, Blood 7.7 mg/dL (8.5-10.1); Chloride, Blood 109 mmol/L (98-108); Creatinine, Blood 0.93 mg/dL (0.40-1.00); Globulin, Blood 3.7 g/dL (2.2-4.0); Glomerular Filtration Rate >60 (60-); Glucose, Blood 115 mg/dL (70-99); Potassium, Blood 3.9 mmol/L (3.5-5.5); Sodium, Blood 140 mmol/L (136-145); Total Protein, Blood 6.2 g/dL (6.4-8.2)
[2018-07-21 05:30] LABS: BASOPHILS ABSOLUTE AUTO 0.03 K/mm3 (0.00-0.23); BASOPHILS PERCENT AUTO 0 % (0-2); EOSINOPHILS PERCENT AUTO 0 % (0-6); Hematocrit 26.4 % (33.0-51.0); Hemoglobin 7.6 g/dL (11.5-16.0); IMMATURE GRAN ABSOLUTE AUTO 0.06 K/mm3 (0.00-0.10); IMMATURE GRAN PERCENT AUTO 1 % (0-1); LYMPHOCYTES ABSOLUTE AUTO 1.08 K/mm3 (0.84-5.20); LYMPHOCYTES PERCENT AUTO 9 % (21-46); MONOCYTES ABSOLUTE AUTO 0.18 K/mm3 (0.16-1.47); MONOCYTES PERCENT AUTO 2 % (4-13); Mean Corpuscular HGB 24.2 pg (26.0-34.0); Mean Corpuscular HGB Conc 28.8 g/dL (31.5-36.5); Mean Platelet Volume 10.2 fL (9.1-12.4); NEUTROPHILS ABSOLUTE AUTO 10.21 K/mm3 (1.96-9.15); NEUTROPHILS PERCENT AUTO 88 % (41-73); NRBC ABSOLUTE 0.03 K/mm3 (0.00-0.02); NRBC Auto 0.3 /100 WBC (0.0-0.2); Platelet Count 388 K/mm3 (150-400); RDW Coefficient Variation 16.5 % (11.7-14.2); Red Blood Cell Count 3.14 M/mm3 (3.80-5.20); White Blood Cell Count 11.56 K/mm3 (4.00-11.30)
[2018-07-21 05:31] LABS: Mean Corpuscular Volume 84 fL (80-100)
[2018-07-21 05:58] LABS: Alanine Aminotransfer (ALT/SGP 13 U/L (12-78); Albumin, Blood 2.7 g/dL (3.4-5.0); Albumin/Globulin Ratio 0.7 (0.8-1.8); Alk Phos 70 U/L (50-136); Anion Gap 11 mmol/L (6-16); Aspartate Aminotrans (AST/SGOT 20 U/L (12-37); Bilirubin, Total 0.4 mg/dL (0.1-1.0); Blood Urea Nitrogen 16 mg/dL (8-24); Bun/Creatinine Ratio 20.8 (12.0-20.0); CO2, Blood 22 mmol/L (21-32); Calcium, Blood 8.1 mg/dL (8.5-10.1); Chloride, Blood 110 mmol/L (98-108); Creatinine, Blood 0.77 mg/dL (0.40-1.00); Glomerular Filtration Rate >60 (60-); Glucose, Blood 146 mg/dL (70-99); Potassium, Blood 3.6 mmol/L (3.5-5.5); Sodium, Blood 143 mmol/L (136-145); Total Protein, Blood 6.7 g/dL (6.4-8.2)
[2018-07-22 07:00] LABS: BASOPHILS ABSOLUTE AUTO 0.02 K/mm3 (0.00-0.23); BASOPHILS PERCENT AUTO 0 % (0-2); EOSINOPHILS PERCENT AUTO 0 % (0-6); Hematocrit 26.8 % (33.0-51.0); Hemoglobin 7.6 g/dL (11.5-16.0); IMMATURE GRAN ABSOLUTE AUTO 0.09 K/mm3 (0.00-0.10); IMMATURE GRAN PERCENT AUTO 1 % (0-1); LYMPHOCYTES ABSOLUTE AUTO 1.48 K/mm3 (0.84-5.20); LYMPHOCYTES PERCENT AUTO 10 % (21-46); MONOCYTES ABSOLUTE AUTO 0.76 K/mm3 (0.16-1.47); MONOCYTES PERCENT AUTO 5 % (4-13); Mean Corpuscular HGB 24.8 pg (26.0-34.0); Mean Corpuscular HGB Conc 28.4 g/dL (31.5-36.5); Mean Platelet Volume 10.3 fL (9.1-12.4); NEUTROPHILS ABSOLUTE AUTO 11.92 K/mm3 (1.96-9.15); NEUTROPHILS PERCENT AUTO 84 % (41-73); NRBC ABSOLUTE 0.07 K/mm3 (0.00-0.02); NRBC Auto 0.5 /100 WBC (0.0-0.2); Platelet Count 417 K/mm3 (150-400); RDW Coefficient Variation 16.7 % (11.7-14.2); RDW Standard Deviation 51.8 fL (35.1-46.3); Red Blood Cell Count 3.07 M/mm3 (3.80-5.20); White Blood Cell Count 14.27 K/mm3 (4.00-11.30)
[2018-07-22 07:03] LABS: Mean Corpuscular Volume 87 fL (80-100)
[2018-07-22 07:15] LABS: Anion Gap 11 mmol/L (6-16); Blood Urea Nitrogen 28 mg/dL (8-24); Bun/Creatinine Ratio 36.6 (12.0-20.0); CO2, Blood 21 mmol/L (21-32); Calcium, Blood 8.2 mg/dL (8.5-10.1); Chloride, Blood 115 mmol/L (98-108); Creatinine, Blood 0.76 mg/dL (0.40-1.00); Glomerular Filtration Rate >60 (60-); Glucose, Blood 134 mg/dL (70-99); Potassium, Blood 3.9 mmol/L (3.5-5.5); Sodium, Blood 147 mmol/L (136-145)
[2018-07-23 12:54] LABS: Hematocrit 28.2 % (33.0-51.0); Mean Corpuscular HGB 25.2 pg (26.0-34.0); Mean Corpuscular HGB Conc 28.4 g/dL (31.5-36.5); Mean Corpuscular Volume 89 fL (80-100); Mean Platelet Volume 10.5 fL (9.1-12.4); NRBC ABSOLUTE 0.06 K/mm3 (0.00-0.02); NRBC Auto 0.4 /100 WBC (0.0-0.2); Platelet Count 508 K/mm3 (150-400); RDW Standard Deviation 53.1 fL (35.1-46.3); Red Blood Cell Count 3.17 M/mm3 (3.80-5.20); White Blood Cell Count 17.04 K/mm3 (4.00-11.30)
[2018-07-23 13:07] LABS: Anion Gap 10 mmol/L (6-16); Blood Urea Nitrogen 34 mg/dL (8-24); Bun/Creatinine Ratio 44.5 (12.0-20.0); CO2, Blood 22 mmol/L (21-32); Calcium, Blood 8.6 mg/dL (8.5-10.1); Chloride, Blood 111 mmol/L (98-108); Creatinine, Blood 0.76 mg/dL (0.40-1.00); Glomerular Filtration Rate >60 (60-); Glucose, Blood 122 mg/dL (70-99); Potassium, Blood 4.2 mmol/L (3.5-5.5); Sodium, Blood 143 mmol/L (136-145)
[2018-07-24 04:54] LABS: BASOPHILS ABSOLUTE AUTO 0.01 K/mm3 (0.00-0.23); BASOPHILS PERCENT AUTO 0 % (0-2); EOSINOPHILS ABSOLUTE AUTO 0.01 K/mm3 (0.00-0.68); EOSINOPHILS PERCENT AUTO 0 % (0-6); Hematocrit 28.7 % (33.0-51.0); Hemoglobin 8.3 g/dL (11.5-16.0); IMMATURE GRAN ABSOLUTE AUTO 0.19 K/mm3 (0.00-0.10); IMMATURE GRAN PERCENT AUTO 1 % (0-1); LYMPHOCYTES ABSOLUTE AUTO 2.06 K/mm3 (0.84-5.20); LYMPHOCYTES PERCENT AUTO 16 % (21-46); MONOCYTES ABSOLUTE AUTO 1.27 K/mm3 (0.16-1.47); MONOCYTES PERCENT AUTO 10 % (4-13); Mean Corpuscular HGB 24.5 pg (26.0-34.0); Mean Corpuscular HGB Conc 28.9 g/dL (31.5-36.5); Mean Platelet Volume 10.5 fL (9.1-12.4); NEUTROPHILS ABSOLUTE AUTO 9.78 K/mm3 (1.96-9.15); NEUTROPHILS PERCENT AUTO 73 % (41-73); NRBC ABSOLUTE 0.08 K/mm3 (0.00-0.02); NRBC Auto 0.6 /100 WBC (0.0-0.2); Platelet Count 509 K/mm3 (150-400); RDW Coefficient Variation 19.3 % (11.7-14.2); RDW Standard Deviation 49.8 fL (35.1-46.3); Red Blood Cell Count 3.39 M/mm3 (3.80-5.20); White Blood Cell Count 13.32 K/mm3 (4.00-11.30)
[2018-07-24 05:02] LABS: Mean Corpuscular Volume 85 fL (80-100)
[2018-07-24 05:16] LABS: Albumin, Blood 2.9 g/dL (3.4-5.0); Anion Gap 9 mmol/L (6-16); Blood Urea Nitrogen 36 mg/dL (8-24); Bun/Creatinine Ratio 37.5 (12.0-20.0); CO2, Blood 25 mmol/L (21-32); Calcium, Blood 8.5 mg/dL (8.5-10.1); Chloride, Blood 109 mmol/L (98-108); Creatinine, Blood 0.96 mg/dL (0.40-1.00); Glomerular Filtration Rate 59 (60-); Glucose, Blood 106 mg/dL (70-99); Potassium, Blood 4.2 mmol/L (3.5-5.5); Sodium, Blood 143 mmol/L (136-145)
[2018-07-24] MEDS ORDERED: Pulmicort1 MG/2 ML INH (14:13)
[2018-07-24] MEDS ORDERED: DOCU100 PO (14:14)
[2018-07-24] MEDS ORDERED: Ferrous Sulfat324 MG PO (14:15)
[2018-07-24] MEDS ORDERED: FURO40 PO (14:16)
[2018-07-24] MEDS ORDERED: LEVFLO250 PO (14:16)
[2018-07-24] MEDS ORDERED: (None)20 M1 PO (14:17)
[2018-07-24] MEDS ORDERED: POTCHL20ER PO (14:18)
[2018-07-24] MEDS ORDERED: PANT40 PO (14:18)
== END 2018-07-24 14:51 | disposition home health service (06) | DRG 194 ==
LOC: ER 12:55 → MEDS 12:56 → ENPENDDIS 07-24 12:00 → MEDS 07-24 14:51
PROVIDERS: Emergency Medicine; Internal Medicine; Internal Medicine Critical Care Medicine; Physician Assistant
DX: J18.9 Pneumonia, unspecified organism (principal); E87.0 Hyperosmolality and hypernatremia; R64 Cachexia; D50.0 Iron deficiency anemia secondary to blood loss (chronic); I48.91 Unspecified atrial fibrillation; F03.90 Unspecified dementia, unspecified severity, without behavioral disturbance, psychotic disturbance, mood disturbance, and anxiety; I10 Essential (primary) hypertension; E78.00 Pure hypercholesterolemia, unspecified; Z66 Do not resuscitate; Z86.73 Personal history of transient ischemic attack (TIA), and cerebral infarction without residual deficits; Z88.0 Allergy status to penicillin; Z88.2 Allergy status to sulfonamides; Z88.7 Allergy status to serum and vaccine; Z88.8 Allergy status to other drugs, medicaments and biological substances; Z79.899 Other long term (current) drug therapy
CPT/HCPCS: 36415; 71046; 71250; 80048; 80053; 80069; 82728; 83540; 83550; 83605; 83880; 84443; 84484; 85025; 85651; 86850; 86900; 86901; 87040; 93005; 93010; 94640; 94760; 96365; 97110; 97116; 97162; 99285-25; C9113; G8978; G8979; J0456; J0713; J1956; J2916; J2920; J3370; J7030; J7050; J7626

== ENCOUNTER 2019-06-17 07:26 | Emergency (ER) | payer OTHER ==
[~2019-06-17] VITALS: Ht 152.4 cm; Wt 41.7 kg
[~2019-06-17 07:26] MED LIST changes: +(None)20 M1 PO; +DOCU100 PO; +FURO40 PO; +Ferrous Sulfat324 MG PO; +LEVFLO250 PO; +PANT40 PO; +POTCHL20ER PO; +Pulmicort1 MG/2 ML INH
[2019-06-17 08:39] LABS: BASOPHILS ABSOLUTE AUTO 0.03 K/mm3 (0.00-0.23); BASOPHILS PERCENT AUTO 0 % (0-2); EOSINOPHILS ABSOLUTE AUTO 0.18 K/mm3 (0.00-0.68); EOSINOPHILS PERCENT AUTO 1 % (0-6); Hematocrit 47.8 % (33.0-51.0); Hemoglobin 15.5 g/dL (11.5-16.0); IMMATURE GRAN ABSOLUTE AUTO 0.06 K/mm3 (0.00-0.10); IMMATURE GRAN PERCENT AUTO 1 % (0-1); LYMPHOCYTES ABSOLUTE AUTO 2.69 K/mm3 (0.84-5.20); LYMPHOCYTES PERCENT AUTO 20 % (21-46); MONOCYTES ABSOLUTE AUTO 1.03 K/mm3 (0.16-1.47); MONOCYTES PERCENT AUTO 8 % (4-13); Mean Corpuscular HGB 30.9 pg (26.0-34.0); Mean Corpuscular HGB Conc 32.4 g/dL (31.5-36.5); Mean Corpuscular Volume 95 fL (80-100); Mean Platelet Volume 10.1 fL (9.1-12.4); NEUTROPHILS ABSOLUTE AUTO 9.22 K/mm3 (1.96-9.15); NEUTROPHILS PERCENT AUTO 70 % (41-73); Platelet Count 227 K/mm3 (150-400); RDW Coefficient Variation 14.7 % (11.7-14.2); RDW Standard Deviation 51.8 fL (35.1-46.3); Red Blood Cell Count 5.01 M/mm3 (3.80-5.20); White Blood Cell Count 13.21 K/mm3 (4.00-11.30)
[2019-06-17 09:05] LABS: Troponin I <0.015 ng/mL (0.000-0.040)
[2019-06-17 09:06] LABS: Alanine Aminotransfer (ALT/SGP 25 U/L (12-78); Albumin, Blood 3.3 g/dL (3.4-5.0); Albumin/Globulin Ratio 0.8 (0.8-1.8); Alk Phos 71 U/L (50-136); Anion Gap 6 mmol/L (6-16); Aspartate Aminotrans (AST/SGOT 27 U/L (12-37); Bilirubin, Total 0.6 mg/dL (0.1-1.0); Blood Urea Nitrogen 22 mg/dL (8-24); Bun/Creatinine Ratio 25.5 (12.0-20.0); CO2, Blood 27 mmol/L (21-32); Calcium, Blood 8.6 mg/dL (8.5-10.1); Chloride, Blood 109 mmol/L (98-108); Creatinine, Blood 0.86 mg/dL (0.40-1.00); Glomerular Filtration Rate >60 (60-); Glucose, Blood 107 mg/dL (70-99); Potassium, Blood 4.3 mmol/L (3.5-5.5); Sodium, Blood 142 mmol/L (136-145); Total Protein, Blood 7.3 g/dL (6.4-8.2)
== END 2019-06-17 10:30 | disposition home or self-care (01) ==
LOC: ER 07:26
PROVIDERS: Physician Assistant
DX: I16.0 Hypertensive urgency (principal); Z88.0 Allergy status to penicillin; Z88.2 Allergy status to sulfonamides; Z88.8 Allergy status to other drugs, medicaments and biological substances; Z88.7 Allergy status to serum and vaccine; Z79.899 Other long term (current) drug therapy; Z79.52 Long term (current) use of systemic steroids; I10 Essential (primary) hypertension; K21.9 Gastro-esophageal reflux disease without esophagitis; F32.9 Major depressive disorder, single episode, unspecified; I48.91 Unspecified atrial fibrillation; Z85.038 Personal history of other malignant neoplasm of large intestine
CPT/HCPCS: 36415; 70450; 71046; 80053; 84484; 85025; 93005; 93010; 96374; 99284-25

== ENCOUNTER 2019-12-08 18:42 | Observation (INO) | payer OTHER ==
[~2019-12-08] VITALS: Ht 149.9 cm; Wt 43.1 kg
[~2019-12-08 18:42] MED LIST changes: -CHOL10002 PO; -METO25ER PO; +METO50ER PO; +VITAMIN D-32000 UNIT PO
[2019-12-08 19:20] LABS: BASOPHILS ABSOLUTE AUTO 0.03 K/mm3 (0.00-0.23); BASOPHILS PERCENT AUTO 0 % (0-2); EOSINOPHILS ABSOLUTE AUTO 0.09 K/mm3 (0.00-0.68); EOSINOPHILS PERCENT AUTO 1 % (0-6); Hematocrit 49.8 % (33.0-51.0); IMMATURE GRAN ABSOLUTE AUTO 0.04 K/mm3 (0.00-0.10); IMMATURE GRAN PERCENT AUTO 0 % (0-1); LYMPHOCYTES ABSOLUTE AUTO 3.23 K/mm3 (0.84-5.20); LYMPHOCYTES PERCENT AUTO 30 % (21-46); MONOCYTES ABSOLUTE AUTO 0.96 K/mm3 (0.16-1.47); MONOCYTES PERCENT AUTO 9 % (4-13); Mean Corpuscular HGB 30.7 pg (26.0-34.0); Mean Corpuscular HGB Conc 32.1 g/dL (31.5-36.5); Mean Corpuscular Volume 96 fL (80-100); Mean Platelet Volume 10.4 fL (9.1-12.4); NEUTROPHILS ABSOLUTE AUTO 6.29 K/mm3 (1.96-9.15); NEUTROPHILS PERCENT AUTO 59 % (41-73); Platelet Count 237 K/mm3 (150-400); RDW Coefficient Variation 14.1 % (11.7-14.2); RDW Standard Deviation 50.1 fL (35.1-46.3); Red Blood Cell Count 5.21 M/mm3 (3.80-5.20); White Blood Cell Count 10.64 K/mm3 (4.00-11.30)
[2019-12-08 19:34] LABS: International Normalized Ratio 1.67; Prothrombin Time Results 17.4 Sec (9.7-11.5)
[2019-12-08 19:38] LABS: Alanine Aminotransfer (ALT/SGP 31 U/L (12-78); Albumin, Blood 3.7 g/dL (3.4-5.0); Albumin/Globulin Ratio 0.9 (0.8-1.8); Alk Phos 89 U/L (50-136); Anion Gap 5 mmol/L (6-16); Aspartate Aminotrans (AST/SGOT 24 U/L (12-37); Bilirubin, Total 0.5 mg/dL (0.1-1.0); Blood Urea Nitrogen 21 mg/dL (8-24); Bun/Creatinine Ratio 22.6 (12.0-20.0); CO2, Blood 29 mmol/L (21-32); Calcium, Blood 9.2 mg/dL (8.5-10.1); Chloride, Blood 104 mmol/L (98-108); Creatinine, Blood 0.93 mg/dL (0.40-1.00); Globulin, Blood 4.2 g/dL (2.2-4.0); Glomerular Filtration Rate >60 (60-); Glucose, Blood 188 mg/dL (70-99); Potassium, Blood 3.6 mmol/L (3.5-5.5); Sodium, Blood 138 mmol/L (136-145); Total Protein, Blood 7.9 g/dL (6.4-8.2)
--- NOTE | 2019-12-09 01:44 | NUR ---
84 YR OLD FEMAL ADMITTED TO FLOOR FROM THE ED WITH POSSIBLE STROKE. ED RN VOICED SHE HAD "WORD SALAD" AND WAS UNABLE TO ANSWER QUESTIONS, HOWEVER, WHEN SHE ARRIVED AT THE FLOOR, HER VERBAL RESPONSE WAS APPROPRIATE TO QUESTIOONS ASKED, BUT SEEMED TO EITHER BE FORGETFUL, OR A POOR HISTORIAN. UNABLE TO COMPLETE MEDICATION LISTS FOR REASONS MENTIONED ABOVE. ON HEPARIN DRIP. NO NOTED DEFECEITS OTHER THAN LEFT HAND UNABLE TO CLOSE TIGHT DUE TO VOICED ARTHRITIS. WILL CONTINUE TO ASSESS NEURO AND BP (ELEVATED BP) THROUGH SHIFT. ORIENTED TO CALL LIGHT.
[2019-12-09 04:34] LABS: Hematocrit 44.3 % (33.0-51.0); Hemoglobin 14.9 g/dL (11.5-16.0); Mean Corpuscular HGB 31.3 pg (26.0-34.0); Mean Corpuscular HGB Conc 33.6 g/dL (31.5-36.5); Mean Platelet Volume 10.8 fL (9.1-12.4); Platelet Count 223 K/mm3 (150-400); RDW Coefficient Variation 14.1 % (11.7-14.2); RDW Standard Deviation 48.5 fL (35.1-46.3); Red Blood Cell Count 4.76 M/mm3 (3.80-5.20); White Blood Cell Count 11.24 K/mm3 (4.00-11.30)
[2019-12-09 04:35] LABS: Mean Corpuscular Volume 93 fL (80-100)
--- NOTE | 2019-12-09 04:43 | NUR ---
PT RESTING QUIETLY INBETWEEN ASSESSMENTS. NEURO CHECKS DONE ABOUT EVERY 4 HRS, NO NOTED DEFECEIT FROM LEFT COMPARED TO THE RIGHT SIDE. SLIGHT POSSIBLE DROOP OF RIGHT SIDE OF SMILE, AND SOME PAIN/LIMITED USE OF LEFT HAND DUE TO (PER PT STATEMENT) ARTHRITIS OF LEFT HAND. HEPARIN DRIP CONTINUES (SEE MAR FOR DETAILS). CALL LIGHT IN REACH. BP DROPING TO WNL LEVELS. SEE DOC FLOW SHEETS FOR DETAILS.
[2019-12-09 04:55] LABS: Alanine Aminotransfer (ALT/SGP 27 U/L (12-78); Albumin, Blood 3.2 g/dL (3.4-5.0); Albumin/Globulin Ratio 0.9 (0.8-1.8); Alk Phos 76 U/L (50-136); Anion Gap 7 mmol/L (6-16); Aspartate Aminotrans (AST/SGOT 26 U/L (12-37); Bilirubin, Total 0.7 mg/dL (0.1-1.0); Blood Urea Nitrogen 20 mg/dL (8-24); Bun/Creatinine Ratio 25.2 (12.0-20.0); CO2, Blood 26 mmol/L (21-32); Calcium, Blood 8.7 mg/dL (8.5-10.1); Chloride, Blood 107 mmol/L (98-108); Creatinine, Blood 0.79 mg/dL (0.40-1.00); Globulin, Blood 3.7 g/dL (2.2-4.0); Glomerular Filtration Rate >60 (60-); Glucose, Blood 99 mg/dL (70-99); Potassium, Blood 3.7 mmol/L (3.5-5.5); Sodium, Blood 140 mmol/L (136-145); Total Protein, Blood 6.9 g/dL (6.4-8.2)
[2019-12-09] MEDS ORDERED: WARF1 PO (09:25)
[2019-12-09] MEDS ORDERED: WARF2.5 PO (09:25)
[2019-12-09] MEDS ORDERED: LOSA25 PO (09:26)
[2019-12-09] MEDS ORDERED: IRON PO (09:33)
[2019-12-09 10:51] LABS: Source, Urine Clean Catch
[2019-12-09 10:56] LABS: Bilirubin, Urine Neg (Neg); Blood, Urine 1+ (Neg); Glucose Qualitative, Urine Neg (Neg); Ketones, Urine Neg (Neg); Leukocyte Esterase, Urine 1+ (Neg); Nitrite, Urine Neg (Neg); Protein, Urine 1+ (Neg); Urobilinogen, Urine NORM (Normal)
[2019-12-09 11:20] LABS: Appearance, Urine Clear (Clear); Color, Urine Yellow (P-Yellow)
[2019-12-09 11:21] LABS: Bacteria Few /hpf; Red Blood Cells, Urine 0-2 /hpf (0-2); Squamous Epithelial Cells Few /hpf (Few); Transitional Epithelial Cells Rare /hpf (0-Rare)
[2019-12-09 12:19] LABS: International Normalized Ratio 1.66; Prothrombin Time Results 17.3 Sec (9.7-11.5)
--- NOTE | 2019-12-09 15:22 | NUR ---
PT STABLE D/C HOME WITH . MEDICATION CHANGES REVIEWED, PT HAD NO FURTHUR QUESTIONS. DIRECTOR SUPPLY CHAIN ESCORTED PT VIA W/C. PERSONAL BELONGING SENT WITH PT.
== END 2019-12-09 15:22 | disposition home health service (06) ==
LOC: ER 18:42 → MEDS 18:43 → ER 21:05 → MEDS 21:05
PROVIDERS: Physician Assistant; ADMIT Internal Medicine
DX: R47.01 Aphasia (principal); I16.0 Hypertensive urgency; I12.9 Hypertensive chronic kidney disease with stage 1 through stage 4 chronic kidney disease, or unspecified chronic kidney disease; N18.3 Chronic kidney disease, stage 3 (moderate); I48.91 Unspecified atrial fibrillation; I48.92 Unspecified atrial flutter; D64.9 Anemia, unspecified; K21.9 Gastro-esophageal reflux disease without esophagitis; Z86.73 Personal history of transient ischemic attack (TIA), and cerebral infarction without residual deficits; Z79.01 Long term (current) use of anticoagulants; Z88.0 Allergy status to penicillin; Z88.2 Allergy status to sulfonamides; Z88.7 Allergy status to serum and vaccine; Z88.8 Allergy status to other drugs, medicaments and biological substances; Z79.899 Other long term (current) drug therapy
CPT/HCPCS: 36415; 70450; 80053; 81001; 85025; 85027; 85610; 85730; 87086; 92523; 93005; 93010; 93880; 94640; 94760; 96374; 96376; 97110; 97116; 97161; 99285-25; G0378; J1644; J7626

== ENCOUNTER → 2020-12-02 | Outpatient (CLI) | payer OTHER ==
[~2020-12-02] MED LIST changes: +IRON PO; +LOSA25 PO; +WARF1 PO; +WARF2.5 PO
[2020-12-02 14:14] LABS: Source, Urine Clean Catch
[2020-12-02 15:09] LABS: Appearance, Urine Clear (Clear); Bilirubin, Urine Neg (Neg); Blood, Urine Neg (Neg); Color, Urine Yellow (P-Yellow); Glucose Qualitative, Urine Neg (Neg); Ketones, Urine Neg (Neg); Leukocyte Esterase, Urine 1+ (Neg); Nitrite, Urine Neg (Neg); Protein, Urine Neg (Neg); Urobilinogen, Urine NORM (Normal)
[2020-12-02 15:33] LABS: Bacteria Few /hpf; Red Blood Cells, Urine 0-2 /hpf (0-2); Squamous Epithelial Cells Rare /hpf (Few); White Blood Cells, Urine 0-2 /hpf (0-5)
== END ==
LOC: LAB SHORT 14:11 → LAB 14:11
PROVIDERS: Student in an Organized Health Care Education/Training Program
DX: Z79.01 Long term (current) use of anticoagulants (principal); Z51.81 Encounter for therapeutic drug level monitoring; I48.19 Other persistent atrial fibrillation; I10 Essential (primary) hypertension; N39.46 Mixed incontinence; R23.2 Flushing
CPT/HCPCS: 81001; 87086

== ENCOUNTER 2022-07-24 18:34 | Inpatient (IN) | payer OTHER ==
[~2022-07-24] VITALS: Ht 152.4 cm; Wt 45.0 kg
[2022-07-24 20:11] LABS: BASOPHILS ABSOLUTE AUTO 0.03 K/mm3 (0.00-0.23); BASOPHILS PERCENT AUTO 0 % (0-2); EOSINOPHILS ABSOLUTE AUTO 0.11 K/mm3 (0.00-0.68); EOSINOPHILS PERCENT AUTO 1 % (0-6); Hematocrit 39.3 % (33.0-51.0); IMMATURE GRAN ABSOLUTE AUTO 0.06 K/mm3 (0.00-0.10); IMMATURE GRAN PERCENT AUTO 1 % (0-1); LYMPHOCYTES ABSOLUTE AUTO 1.79 K/mm3 (0.84-5.20); LYMPHOCYTES PERCENT AUTO 18 % (21-46); MONOCYTES ABSOLUTE AUTO 0.85 K/mm3 (0.16-1.47); MONOCYTES PERCENT AUTO 9 % (4-13); Mean Corpuscular HGB 31.4 pg (26.0-34.0); Mean Corpuscular HGB Conc 33.1 g/dL (31.5-36.5); Mean Corpuscular Volume 95 fL (80-100); Mean Platelet Volume 10.4 fL (9.1-12.4); NEUTROPHILS PERCENT AUTO 71 % (41-73); Platelet Count 208 K/mm3 (150-400); RDW Coefficient Variation 13.4 % (11.7-14.2); Red Blood Cell Count 4.14 M/mm3 (3.80-5.20); White Blood Cell Count 9.94 K/mm3 (4.00-11.30)
[2022-07-24 20:25] LABS: Albumin, Blood 3.6 g/dL (3.4-5.0); Albumin/Globulin Ratio 1.1 (0.8-1.8); Bilirubin, Total 0.3 mg/dL (0.1-1.0); Bun/Creatinine Ratio 42.2 (12.0-20.0); Creatinine, Blood 0.95 mg/dL (0.40-1.00); Globulin, Blood 3.4 g/dL (2.2-4.0)
[2022-07-24 21:46] LABS: International Normalized Ratio 1.81; Prothrombin Time Results 18.3 Sec (9.7-11.5)
--- NOTE | 2022-07-25 02:37 | NUR ---
PATIENT ARRIVED TO FLOOR @ ABOUT 0030. VSS, SETTLED AND ORIENTED TO ROOM. CALL LIGHT IN REACH. BED ALARM FOR SAFETY.
--- NOTE | 2022-07-25 03:27 | NUR ---
SHIFT SUMMARY PATIENT ADMITTED FOR R HIP FX, AWAITING SURGICAL CONSULT. NPO, FLUIDS INFUSING. HOLM CATHETER INSERTED PATENT AND DRAINING, SAMPLE SENT TO LAB. PATIENT MEDICATED WITH 12.5MCG OF FENT FOR PAIN, SOFT BP NOTED. PATIENT ASYMTOMATIC, ALERT AND ORIENTED, TIMING INSPECTOR REPORTED SINUS 61 HR. SATS 96% ON ROOM AIR, RR 16. WILL CONTINUE TO MONITOR FOR CHANGES. CALL LIGHT IN REACH. BED ALARM FOR SAFETY WILL REPORT TO ONCOMING RN.
[2022-07-25 04:51] LABS: BASOPHILS ABSOLUTE AUTO 0.04 K/mm3 (0.00-0.23); BASOPHILS PERCENT AUTO 0 % (0-2); EOSINOPHILS ABSOLUTE AUTO 0.03 K/mm3 (0.00-0.68); EOSINOPHILS PERCENT AUTO 0 % (0-6); Hematocrit 34.1 % (33.0-51.0); Hemoglobin 11.3 g/dL (11.5-16.0); IMMATURE GRAN ABSOLUTE AUTO 0.05 K/mm3 (0.00-0.10); IMMATURE GRAN PERCENT AUTO 0 % (0-1); LYMPHOCYTES ABSOLUTE AUTO 1.81 K/mm3 (0.84-5.20); LYMPHOCYTES PERCENT AUTO 16 % (21-46); MONOCYTES ABSOLUTE AUTO 1.08 K/mm3 (0.16-1.47); MONOCYTES PERCENT AUTO 9 % (4-13); Mean Corpuscular HGB 31.5 pg (26.0-34.0); Mean Corpuscular HGB Conc 33.1 g/dL (31.5-36.5); Mean Corpuscular Volume 95 fL (80-100); Mean Platelet Volume 10.5 fL (9.1-12.4); NEUTROPHILS ABSOLUTE AUTO 8.67 K/mm3 (1.96-9.15); NEUTROPHILS PERCENT AUTO 74 % (41-73); Platelet Count 209 K/mm3 (150-400); RDW Coefficient Variation 13.3 % (11.7-14.2); RDW Standard Deviation 46.6 fL (35.1-46.3); Red Blood Cell Count 3.59 M/mm3 (3.80-5.20); White Blood Cell Count 11.68 K/mm3 (4.00-11.30)
[2022-07-25 05:05] LABS: International Normalized Ratio 1.96; Prothrombin Time Results 19.7 Sec (9.7-11.5)
[2022-07-25 05:12] LABS: Bun/Creatinine Ratio 42.3 (12.0-20.0); Calcium, Blood 8.8 mg/dL (8.5-10.1); Creatinine, Blood 0.97 mg/dL (0.40-1.00); Potassium, Blood 4.3 mmol/L (3.5-5.5)
--- NOTE | 2022-07-25 12:33 | NUR ---
NOTIFIED MD OF PATIENTS RECENT BLOOD PRESSURE READINGS. TELEPHONE ORDER GIVEN TO GIVE 500ML NS OVER 2 HOURS & MD TO REVIEW PATIENTS MEDICATIONS.
--- NOTE | 2022-07-25 17:57 | NUR ---
SHIFT SUMMARY PATIENT IS S/P GLF AND SUSTAINED R HIP FX. NO SURGERY TODAY D/T INR. VIT K GIVEN TO LOWER INR, GOAL IS <1.2 FOR SURGERY, HOPEFULLY TOMORROW. PAIN MANAGED PER EMAR. PATIENT HAS HAD POOR APETITE TODAY, WILL BE NPO AT MIDNIGHT. HOLM IN PLACE, DRAINING CLEAR YELLOW URINE. CALLS APPROPRIATELY, WILL REPORT TO ONCOMING RN.
[2022-07-26 03:24] LABS: Influenza A, PCR NEGATIVE (NEGATIVE); Influenza B, PCR NEGATIVE (NEGATIVE); Resp Syncytial Virus, PCR NEGATIVE (NEGATIVE); SARS-Cov-2 (COVID-19) PCR, MMC NEGATIVE (NEGATIVE)
--- NOTE | 2022-07-26 05:13 | NUR ---
SHIFT SUMMARY ADMITTED FOR L HIP FX, ANTICIPATING FOR SURGICAL PROCEDURE TODAY. PT NPO AFTER MIDNIGHT. SALINE LOCKED. PT REPORTS PAIN, PAIN MANAGED WITH TYELNOL GIVEN ONCE T/O SHIFT. PT HAD 12.5MG FENTANYL DURING ADMISSION WHICH DECREASE HER BP SIGNIFICANTLY, DIDN'T USE FENTANYL SINCE THEN BECAUSE PT WAS SENSTIVE WITH THE MEDICATION. SATS WNL. VSS. MILDLY HYPERTENSIVE. PT IS VERY ANXIOUS. REQUESTED TO ACCOMPANY HER IN THE ROOM. SAT WITH PT PROVIDE ATTENTIONA AND REASSURANCE BUT PT VERBALIZE TO HAVE CONTINOUS WORRIES ABOUT HER UPCOMING SURGERY. TELE: SR TO AFIB (SHE GOES BACK AND FORTH OVERNIGHT), MARIELENA THOROUGHBRED HORSE FARM MANAGER NOTED AN EPISODE OF 135 (PT WAS VERY ANXIOUS AT THAT TIME LOOKING FOR ). PT DIDN'T SLEEP T/O SHIFT. CALL LIGHT WITHIN REACH. WILL NOTIFY ONCOMING NURSE.
[2022-07-26 05:27] LABS: BASOPHILS ABSOLUTE AUTO 0.04 K/mm3 (0.00-0.23); BASOPHILS PERCENT AUTO 0 % (0-2); EOSINOPHILS ABSOLUTE AUTO 0.05 K/mm3 (0.00-0.68); EOSINOPHILS PERCENT AUTO 0 % (0-6); Hematocrit 34.9 % (33.0-51.0); Hemoglobin 11.4 g/dL (11.5-16.0); IMMATURE GRAN ABSOLUTE AUTO 0.04 K/mm3 (0.00-0.10); IMMATURE GRAN PERCENT AUTO 0 % (0-1); LYMPHOCYTES ABSOLUTE AUTO 2.39 K/mm3 (0.84-5.20); LYMPHOCYTES PERCENT AUTO 19 % (21-46); MONOCYTES ABSOLUTE AUTO 1.31 K/mm3 (0.16-1.47); MONOCYTES PERCENT AUTO 10 % (4-13); Mean Corpuscular HGB Conc 32.7 g/dL (31.5-36.5); Mean Corpuscular Volume 95 fL (80-100); Mean Platelet Volume 10.7 fL (9.1-12.4); NEUTROPHILS ABSOLUTE AUTO 8.75 K/mm3 (1.96-9.15); NEUTROPHILS PERCENT AUTO 70 % (41-73); Platelet Count 207 K/mm3 (150-400); RDW Coefficient Variation 13.3 % (11.7-14.2); RDW Standard Deviation 46.5 fL (35.1-46.3); Red Blood Cell Count 3.68 M/mm3 (3.80-5.20); White Blood Cell Count 12.58 K/mm3 (4.00-11.30)
[2022-07-26 05:31] LABS: International Normalized Ratio 1.13; Prothrombin Time Results 11.8 Sec (9.7-11.5)
[2022-07-26 05:47] LABS: Calcium, Blood 8.7 mg/dL (8.5-10.1); Creatinine, Blood 0.82 mg/dL (0.40-1.00); Potassium, Blood 3.6 mmol/L (3.5-5.5)
--- NOTE | 2022-07-26 08:50 | NUR ---
TO DAY SURGERY VIA HOSPITAL BED
--- NOTE | 2022-07-26 09:06 | NUR ---
THE PATIENT WAS BROUGHT TO THE DAY SURGERY FOR HER PROCEDURE.
--- NOTE | 2022-07-26 11:48 | NUR ---
07/26/22 1148 Eduardo Carrera ANTIBIOTICS GIVEN PREOPERATIVELY AT 1052, CLINDAMYCIN
--- NOTE | 2022-07-26 13:05 | NUR ---
POST OP PT ARRIVED TO UNIT VIA HOSPITAL BED. CONFUSED BUT ANSWERS ?'s. DENIES PAIN. LUNGS CLEAR BUT DIMINISHED w/ WEAK COUGH. 2L NC. ENCOURAGED DEEP BREATHING & COUGHING. AQUACEL x 3 TO R HIP/THIGH. NO DRNG NOTED. PPP. TELE REPLACED. AFIB, TACHY. WILL GIVE METOPROLOL WHEN PT IS MORE ALERT & FOLLOWING COMMANDS. TAB ALARM ON.
--- NOTE | 2022-07-26 18:14 | NUR ---
SHIFT SUMMARY HAD SURGERY TODAY & WAS CONFUSED POST OP, BUT IS MORE ORIENTED NOW. REMEBERING THAT SHE HAD SURGERY. PAIN TOLERABLE w/ TYLENOL. AT SIDE.
--- NOTE | 2022-07-26 22:02 | NUR ---
2129: NO NARCOTICS GIVEN. PT GIVEN SEROQUEL DUE TO INCREASED AGITATION. PT REASSESSED AND FOUND TO BE HALLUCINATING STATING THAT "PUPPIES ARE ON HER LEGS AND IN THE ROOM." PT ALSO CONFUSED TO WHERE SHE IS AND STATES SHE "NEEDS TO GET OUT." PT REORIENTED BUT STARTING TO GET MORE AGITATED AND IRRITABLE. EDENILSON ANDERSON DISCUSSED WITH PT EDENILSON AND HE STATES THAT CONFUSION AND HALLUCINATING AT NIGHT IS BASELINE FOR THE PATIENT. SIDE RAILS UP X3, PT REORIENTED, AND BED ALARM ON.
[2022-07-27 06:40] LABS: BASOPHILS ABSOLUTE AUTO 0.01 K/mm3 (0.00-0.23); BASOPHILS PERCENT AUTO 0 % (0-2); EOSINOPHILS PERCENT AUTO 0 % (0-6); Hemoglobin 9.4 g/dL (11.5-16.0); IMMATURE GRAN ABSOLUTE AUTO 0.08 K/mm3 (0.00-0.10); IMMATURE GRAN PERCENT AUTO 1 % (0-1); LYMPHOCYTES ABSOLUTE AUTO 1.55 K/mm3 (0.84-5.20); LYMPHOCYTES PERCENT AUTO 11 % (21-46); MONOCYTES ABSOLUTE AUTO 1.57 K/mm3 (0.16-1.47); MONOCYTES PERCENT AUTO 11 % (4-13); Mean Corpuscular HGB Conc 33.6 g/dL (31.5-36.5); Mean Corpuscular Volume 92 fL (80-100); Mean Platelet Volume 11.1 fL (9.1-12.4); NEUTROPHILS ABSOLUTE AUTO 11.53 K/mm3 (1.96-9.15); NEUTROPHILS PERCENT AUTO 78 % (41-73); Platelet Count 196 K/mm3 (150-400); RDW Standard Deviation 43.8 fL (35.1-46.3); Red Blood Cell Count 3.03 M/mm3 (3.80-5.20); White Blood Cell Count 14.74 K/mm3 (4.00-11.30)
[2022-07-27 07:01] LABS: Bun/Creatinine Ratio 33.3 (12.0-20.0); Calcium, Blood 8.3 mg/dL (8.5-10.1); Creatinine, Blood 0.93 mg/dL (0.40-1.00); Potassium, Blood 3.9 mmol/L (3.5-5.5)
--- NOTE | 2022-07-27 15:19 | NUR ---
SHIFT SUMMARY: POD 1 RIGHT GAMMA NAILING PATIENT IS A&OX2-3. ACCORDING TO HE STATED "THIS IS HER BASELINE AND SHE BECOMES MORE CONFUSED AT NIGHT". RIGHT HIP HAS 3 AQUACELS THAT HAVE JUST BEEN REPLACED AND ARE C/D/I. PATIENT CAN MOVE FINGERS AND TOES WHEN ASKED AND DENIES NUMBNESS OR TINGLING. PATIENT TRIED WORKING WITH PT/OT TODAY BUT EVERYTIME SHE STANDS UP SHE BECOMES SUDDENLY WEAK. SHE IS A TWO PERSON ASSIST TO REPOSITION IN BED. BED ALARM ON. CALL LIGHT WITHIN REACH. MIHAI WAS TAKEN OUT SINCE SHE IS AT BASELINE INCONTINENT AND SHE WAS CONTINUING TO PULL AT THE TUBING. SHE IS TOLERATING SMALL AMOUNTS OF PO INTAKE. THE PLAN IS TO CONTINUE PT/OT AND WILL EVENTUALLY DISCHARGE TO A SNF WHEN POSSIBLE.
--- NOTE | 2022-07-28 05:33 | NUR ---
SHIFT SUMMARY: PT SLEPT COMFORTABLY T/O THE NIGHT. ATTENDS REMAIN IN PLACE. PAIN WAS SUCCESSFULLY MANAGED. PT CONTINUES TO PULL AT HER BANDAGES AT NIGHT AND X1 DRESSING WAS REPLACED BY A NEW AQUACEL DRESSING. PT HAD MINIMAL EPISODES OF CONFUSION DURING THE NIGHT AND WAS EASILY REORIENTED. PT IS VERY PLEASANT AND COOPERATIVE. TOLERATING SMALL AMOUNTS OF FOOD BUT CONTINUES TO EXPRESS THAT SHE HAS A POOR APPETITE AT BASELINE. TOLERATING PO FLUIDS. AQUACEL DRESSINGS HAVE SCANT AMOUNT OF EXUDATE NOTED. CALL LIGHT REMAINS IN PLACE.
[2022-07-28 08:39] LABS: BASOPHILS ABSOLUTE AUTO 0.03 K/mm3 (0.00-0.23); BASOPHILS PERCENT AUTO 0 % (0-2); EOSINOPHILS ABSOLUTE AUTO 0.02 K/mm3 (0.00-0.68); EOSINOPHILS PERCENT AUTO 0 % (0-6); Hematocrit 28.4 % (33.0-51.0); Hemoglobin 9.4 g/dL (11.5-16.0); IMMATURE GRAN ABSOLUTE AUTO 0.08 K/mm3 (0.00-0.10); IMMATURE GRAN PERCENT AUTO 1 % (0-1); LYMPHOCYTES ABSOLUTE AUTO 1.76 K/mm3 (0.84-5.20); LYMPHOCYTES PERCENT AUTO 12 % (21-46); MONOCYTES ABSOLUTE AUTO 1.11 K/mm3 (0.16-1.47); MONOCYTES PERCENT AUTO 8 % (4-13); Mean Corpuscular HGB 31.1 pg (26.0-34.0); Mean Corpuscular HGB Conc 33.1 g/dL (31.5-36.5); Mean Corpuscular Volume 94 fL (80-100); Mean Platelet Volume 10.9 fL (9.1-12.4); NEUTROPHILS ABSOLUTE AUTO 11.19 K/mm3 (1.96-9.15); NEUTROPHILS PERCENT AUTO 79 % (41-73); Platelet Count 223 K/mm3 (150-400); RDW Coefficient Variation 13.3 % (11.7-14.2); RDW Standard Deviation 46.1 fL (35.1-46.3); Red Blood Cell Count 3.02 M/mm3 (3.80-5.20); White Blood Cell Count 14.19 K/mm3 (4.00-11.30)
[2022-07-28 09:16] LABS: Bun/Creatinine Ratio 50.9 (12.0-20.0); Calcium, Blood 7.9 mg/dL (8.5-10.1); Creatinine, Blood 0.94 mg/dL (0.40-1.00)
[2022-07-28] MEDS ORDERED: ELIQUIS2.5 MG PO (09:43)
[2022-07-28] MEDS ORDERED: ATOR20 PO (09:45)
[2022-07-28] MEDS ORDERED: METO25ER PO (09:45)
[2022-07-28] MEDS ORDERED: DRON400T (09:46)
[2022-07-28] MEDS ORDERED: LEVSOD75 PO (09:47)
[2022-07-28] MEDS ORDERED: LOSA50 PO (09:52)
[2022-07-28] MEDS ORDERED: METO50ER PO (09:53)
[2022-07-28] MEDS ORDERED: IRON18 MG PO (09:53)
[2022-07-28] MEDS ORDERED: VITAMIN D32000 UNIT PO (09:54)
[2022-07-28] MEDS ORDERED: Coumadin2 MG PO (09:55)
--- NOTE | 2022-07-28 15:00 | NUR ---
Pt. is somnilent, but responds when I enter the room. Pt. is pleasant and only unsettled because of the lack of anglican community support that she had long experienced. Listen empathetically with a calming presence. Pt. displays evidence of trust and engagement. Facilitate a lenghty life review and identify Pts. spouse as her significant support. Prayed for Pt. Pt. verbalized gratitude for the spiritual life visit, and welcomed my return.
--- NOTE | 2022-07-28 17:24 | NUR ---
PT ORIENTED, COOPERATIVE AND CONVERSANT THROUGHOUT SHIFT. 1 PERSON ASSIST OOB. PTS HERE MUCH OF SHIFT AND ATTENTIVE TO PATIENT. PT HAS DECLINED ALL OFFERS OF TYLENOL OR PAIN MEDS. SLEEPS WNEN UNDISTURBED. ANTICIPATE SNF DISCHARGE AND PATIENT AND HER SPUSE ARE IN AGREEMNT WITH THIS PLAN
--- NOTE | 2022-07-28 18:25 | NUR ---
PT REPORTS NAUSEA, ZOFRAN GIVEN
--- NOTE | 2022-07-29 06:26 | NUR ---
SHIFT SUMMARY: PT SLEPT COMFORTABLY FOR THE MAJORITY OF THE SHIFT. PT COMPLAINED OF SOME MINOR ANXIETY ABOUT BEING IN THE HOSPITAL BY HERSELF DURING THE SHIFT. ANXIETY APPEARED TO DECREASE DURING THE SHIFT AND SHE WAS ABLE TO GET SOME REST. PT IS VERY PLEASANT AND ENGAGING. CALL LIGHT REMAINS IN REACH.
--- NOTE | 2022-07-29 17:59 | NUR ---
pts here to visit much of shift and attentive to patient. pt awaitiing insurance auth to dc to snf. right hip dressing dry and intact. pt has denied need for pain meds this shift, she states she is just feeling tired.
--- NOTE | 2022-07-30 06:22 | NUR ---
SHIFT SUMMARY POD4 R HIP GAMMA NAIL WITH AQUACEL DRESSING CDI. PT REPORTS MIN PAIN AT REST MODERATE PAIN WITH MOVEMENT. AOX4. FORGETFUL AT TIMES. CALM AND COOPERATIVE WITH CARE. PT SLEPT GOOD OVERNGIHT. PAIN CONTROLLED WITH TYLENOL, GIVEN ONCE THIS MORNING. PT REPORTS NAUSEA, MEDICATED WITH ZOFRAN THIS MORNING. DENIES VOMITING. VSS. CALLS APPROPRIATELY. BED ALARM ON FOR SAFETY. CALL LIGHT WITHIN REACH. WILL PROVIDE REPORT TO ONCOMING NURSE. PLAN:SNF PLACEMENT.
--- NOTE | 2022-07-30 17:54 | NUR ---
SHIFT SUMMARY POD 4 GAMMA NAIL, R HIP. X2 AQUACELS IN PLACE, BOTH CHANGED THIS SHIFT. PATIENT UP TO BSC & CHAIR W/ 1P MINIMAL ASSIST W/GB & FWW, TOLERATES WELL. PATIENT HAS HAD VERY MINIMAL PO INTAKE TODAY, POOR APPETITE. C/O NAUSEA THIS AFTERNOON, MEDICATED PER EMAR. ENCOURAGING PO INTAKE BUT PATIENT UNINTERESTED. MULTIPLE BM'S TODAY, VOIDING WELL. VERY MINIMAL PAIN REPORTED. CALLS APPROPRIATELY, WILL REPORT TO ONCOMING RN.
--- NOTE | 2022-07-31 04:15 | NUR ---
SHIFT SUMMARY POD#5 GAMMA NAIL R HIP. AOX4 WITH SOME FORGETFULNESS AT TIMES. X2 AQUACELS IN PLACE ON R HIP. MEPLILEX ON COCCYX FOR PRETECTION C/D/I. DENIES PAIN, DENIES N/V. TOLERATES SIPS AND SMALL BITES OF APPLESAUCE. USES BSC WITH 1 ASSIST GB, FWW. VSS, CALL LIGHT IN REACH. WILL REPORT TO DAY RN
--- NOTE | 2022-07-31 06:26 | NUR ---
BLACK STOOL AT 0620 AM PT PRESENT LARGE AMOUNT OF BLACK STOOL THIS MORNING. PT REPORTS MILD NAUSEA. MEDICATED WITH ZOFRAN. DENIES CHEST PAIN, SOB, DIZZINESS, LIGHT HEADEDNESS, CHILLS AND VOMITING. PT ALERT AND ORIENTED X2-3 FORGETFUL (WHICH IS HER BASELINE). CALLED DR. CAM. CBC ORDERED. STOOL SAMPLE WAS ALSO COLLECTED AND WILL NOTIFY THE DAY SHIFT NURSE.
[2022-07-31 07:06] LABS: BASOPHILS ABSOLUTE AUTO 0.01 K/mm3 (0.00-0.23); BASOPHILS PERCENT AUTO 0 % (0-2); EOSINOPHILS ABSOLUTE AUTO 0.03 K/mm3 (0.00-0.68); EOSINOPHILS PERCENT AUTO 0 % (0-6); Hemoglobin 6.8 g/dL (11.5-16.0); IMMATURE GRAN ABSOLUTE AUTO 0.16 K/mm3 (0.00-0.10); IMMATURE GRAN PERCENT AUTO 1 % (0-1); LYMPHOCYTES ABSOLUTE AUTO 2.62 K/mm3 (0.84-5.20); LYMPHOCYTES PERCENT AUTO 19 % (21-46); MONOCYTES ABSOLUTE AUTO 1.04 K/mm3 (0.16-1.47); MONOCYTES PERCENT AUTO 7 % (4-13); Mean Corpuscular HGB 31.8 pg (26.0-34.0); Mean Corpuscular HGB Conc 32.4 g/dL (31.5-36.5); Mean Corpuscular Volume 98 fL (80-100); Mean Platelet Volume 10.8 fL (9.1-12.4); NEUTROPHILS PERCENT AUTO 73 % (41-73); Platelet Count 315 K/mm3 (150-400); RDW Standard Deviation 48.5 fL (35.1-46.3); Red Blood Cell Count 2.14 M/mm3 (3.80-5.20); White Blood Cell Count 14.16 K/mm3 (4.00-11.30)
--- NOTE | 2022-07-31 07:15 | NUR ---
UPON ASSUMPTION OF CARE AT 0700, PREVIOUS SHIFT RN & SIENE MAKER INITIATED A RAPID RESPONSE D/T PATIENT CHANGE IN CONCIOUSNESS, PALENESS, DROPPING BLOOD PRESSURE, AND RECENT BLACK/TARRY APPEARING STOOL. FUR TANNER ALEIDA GRIFFITH CALLED CURRENT HOSPITALIST FOR PATIENT, DR CALVO, AND GAVE UPDATE ON PATIENT STATUS. ORDERS ENTERED REFELCTING THIER CONVERSATION. PATIENTS CALLED BY NURSING WIRE COATER.
--- NOTE | 2022-07-31 08:30 | NUR ---
DR CALVO AT BEDSIDE. ORDERED ANOTHER H&H. PATIENT HAD ANOTHER LOOSE, LIQUID, BLACK/RED STOOL. INCONTINENT. PATIENT ALERT, REMAINS PALE AND CLAMMY. HAVING A DIFFICULT TIME GETTING O2 READING D/T POOR PERFUSION. BLOOD PRESSURE REMAINS LOW.
[2022-07-31 08:42] LABS: Hematocrit 20.2 % (33.0-51.0); Hemoglobin 6.2 g/dL (11.5-16.0)
--- NOTE | 2022-07-31 11:30 | NUR ---
DISCUSSED NUTRITION WITH PATIENT AND . PATIENT STATES SHE EATS YOGURT FOR BREAKFAST AT HOME, THIS RN OFFERED BUT PATIENT REFUSED. STATES, "I DONT BLAME HER". THIS RN REINFORCED THAT THE PATIENT HAS NOT HAD HARDLY ANY PO INTAKE SINCE HER SURGERY X5 DAYS AGO AND IS ACKING NUTRITION. PATIENT'S STATES HE WILL GO TO [facility] AND GET HER SOME THINGS. THIS RN AGAIN ASKED WHAT KIND OF THINGS SOUND GOOD TO HER OR WHAT SHE THINKS SHE MAY BE INTERESTED IN EATING SO WE CAN ACCOMODATE THAT FOR HER, PATIENT UNINTERESTED AND STATED "I DONT WANT ANYTHING". THIS RN PLANS TO ENTER DIETARY CONSULT.
--- NOTE | 2022-07-31 13:38 | NUR ---
Pt is an 86 year old woman being followed by Dr. Darling today. She lives at home with her who is also her primary caregiver. Pt had a fall at home on 07/24 resulting in a right hip pinning on 07/26. Pt was previously on coumadin for a-fib. Pt has some dementia at baseline, but has Post pinning, she developed a symptomatic GI bleed, with hypotension, increased confusion, weakness, low H and H. After 2 units of PRBC, symptoms improved. Per staff and pt's , she has only eaten "bites" of food over the past 4 days, and that's also a concern. As of this am, pt had a full code status. Her reports this should have been for surgery only, and we completed a POLST. She is now DNR with limited interventions. Will continue to visit pt, and encourage PO intake. 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 Palliative care to continue with supportive visits for now.
--- NOTE | 2022-07-31 13:42 | NUR ---
2 UNITS PRBC COMPLETED TRANSFUSING. UPDATED, VERBAL ORDERS RECEIVED FROM DR. SHABAZZ TO CONTINUE NORMAL SALINE @ 75/HR AND DO AN H&H IN 1 HOUR.
[2022-07-31 14:33] LABS: Hematocrit 31.7 % (33.0-51.0); Hemoglobin 10.9 g/dL (11.5-16.0)
[2022-07-31 16:23] LABS: Hematocrit 30.3 % (33.0-51.0); Hemoglobin 10.4 g/dL (11.5-16.0)
--- NOTE | 2022-07-31 18:02 | NUR ---
SHIFT SUMMARY PATIENT IS POD 5 FOR GAMMA NAIL TO RIGHT HIP. X2 AQUACELS IN PLACE CHANGED THIS SHIFT, C/D/I. MODERATE AMOUNT OF BRUISING PRESENT TO R HIP NOTED TODAY. PATIENT DENIES PAIN. PATIENT DEVELOPED WHAT APPEARS TO BE A GI BLEED, BLACK/RED/MAUROON, LIQUID, LOOSE, INCONTINENT STOOLS T/O MORNING THAT STARTED ON NOC SHIFT. SEE PREVIOUS NOTES. PATIENT RECIEVED 2 UNITS PRBC, RESPONDED WELL. PATIENT PERKED UP THIS AFTERNOON AND APPEARS TO BE FEELING BETTER AND IN BETTER SPIRITS. PATIENT REMAINS TO HAVE POOR APPETITE ALTHOUGH AFTER ENCOURAGMENT, DID HAVE A CAN OF CHICKEN NOODLE SOUP FOR DINNER. CALLS APPROPRIATELY, WILL REPORT TO ONCOMING RN.
[2022-07-31 19:51] LABS: Hematocrit 31.7 % (33.0-51.0); Hemoglobin 10.8 g/dL (11.5-16.0)
[2022-07-31 23:27] LABS: Hematocrit 29.3 % (33.0-51.0)
[2022-08-01 03:23] LABS: BASOPHILS ABSOLUTE AUTO 0.04 K/mm3 (0.00-0.23); BASOPHILS PERCENT AUTO 0 % (0-2); EOSINOPHILS ABSOLUTE AUTO 0.06 K/mm3 (0.00-0.68); EOSINOPHILS PERCENT AUTO 0 % (0-6); Hematocrit 27.8 % (33.0-51.0); Hemoglobin 9.5 g/dL (11.5-16.0); IMMATURE GRAN PERCENT AUTO 4 % (0-1); LYMPHOCYTES ABSOLUTE AUTO 2.52 K/mm3 (0.84-5.20); LYMPHOCYTES PERCENT AUTO 18 % (21-46); MONOCYTES ABSOLUTE AUTO 1.32 K/mm3 (0.16-1.47); MONOCYTES PERCENT AUTO 10 % (4-13); Mean Corpuscular HGB 31.5 pg (26.0-34.0); Mean Corpuscular HGB Conc 34.2 g/dL (31.5-36.5); Mean Platelet Volume 10.3 fL (9.1-12.4); NEUTROPHILS ABSOLUTE AUTO 9.32 K/mm3 (1.96-9.15); NEUTROPHILS PERCENT AUTO 68 % (41-73); NRBC ABSOLUTE 0.13 K/mm3 (0.00-0.02); NRBC Auto 0.9 /100 WBC (0.0-0.2); Platelet Count 259 K/mm3 (150-400); RDW Coefficient Variation 15.6 % (11.7-14.2); Red Blood Cell Count 3.02 M/mm3 (3.80-5.20); White Blood Cell Count 13.76 K/mm3 (4.00-11.30)
[2022-08-01 03:27] LABS: Mean Corpuscular Volume 92 fL (80-100)
[2022-08-01 03:36] LABS: Bun/Creatinine Ratio 66.1 (12.0-20.0); Calcium, Blood 7.8 mg/dL (8.5-10.1); Creatinine, Blood 1.24 mg/dL (0.40-1.00); Potassium, Blood 3.7 mmol/L (3.5-5.5)
--- NOTE | 2022-08-01 04:05 | NUR ---
SHIFT SUMMARY POD 4 R HIP PINNING. AQUACEL TO R HIP SHOWS SLIGHT SHADOWING. NO ACUTE EVENTS THIS SHIFT. PATIENT TOLERATING SMALL SIPS OF WATER, IV INFUSING 75ML/HR. PATIENT IS INCONTINENT OF URINE, VOIDED X3 THIS SHIFT, ATTENDS IN PLACE. ONE SMALL LOOSE STOOL AT START OF SHIFT. PATIENT MORE ALERT AND ORIENTED THIS SHIFT, FORGETFUL AND APPEARS ANXIOUS AT TIMES SPOUSE AT BEDSIDE FOR SUPPORT. H&H IMPROVED. VSS. PATIENT ABLE TO REPOSITION W/ MINIMAL ASSIST. BED ALARM ON FOR SAFETY, CALL LIGHT IS IN REACH. WILL REPORT TO DAY RN.
[2022-08-01 14:13] LABS: Hematocrit 27.2 % (33.0-51.0); Hemoglobin 9.2 g/dL (11.5-16.0)
--- NOTE | 2022-08-01 19:42 | NUR ---
SHIFT SUMMARY PT A&O3, PLEASANT & COOPERATIVE WITH CARE. S/P R HIP PINNING, AQUACEL DRESSINGS X2 CHANGED THIS SHIFT. AMB 1 PP MOD ASSIST WITH FWW/GB, UP TO CHAIR & BSC; REPOSITIONS SELF WELL IN BED. VOIDING WELL/CONTINENT WITH ENC TO USE BSC. DEBBIE PO, ENC INTAKE-PT HAS POOR INTAKE EVEN WITH ENCOURAGEMENT FROM RN, OR . PT DECLINED NEED FOR TYLENOL FOR PAIN. AT BEDSIDE T/O SHIFT. REPORT PROVIDED TO TOMAS ANDERSON.
--- NOTE | 2022-08-02 04:23 | NUR ---
SHIFT SUMMARY NO ACUTE CHANGES OVERNIGHT. NO BM/BLACK STOOL T/O SHIFT. PT INCONTINENT, ATTENDS IN PLACE. VSS. PT DENIES DIZZINESS, NAUSEA AND VOMITING. PT HAS BEEN ALERT AND ORIENTED X3. FORGETFUL AT TIMES. PT STS SHE HAD A HARD TIME SLEEPING TONIGHT (BASELINE). USE CALL LIGHT APROPRIATELY. REPOSITIONED. CALL LIGHT WITHIN REACH. WILL PROVIDE REPORT TO ONCOMING NURSE.
[2022-08-02 05:50] LABS: BASOPHILS ABSOLUTE AUTO 0.04 K/mm3 (0.00-0.23); BASOPHILS PERCENT AUTO 0 % (0-2); EOSINOPHILS ABSOLUTE AUTO 0.25 K/mm3 (0.00-0.68); EOSINOPHILS PERCENT AUTO 2 % (0-6); Hematocrit 27.9 % (33.0-51.0); IMMATURE GRAN ABSOLUTE AUTO 0.41 K/mm3 (0.00-0.10); IMMATURE GRAN PERCENT AUTO 4 % (0-1); LYMPHOCYTES ABSOLUTE AUTO 1.57 K/mm3 (0.84-5.20); LYMPHOCYTES PERCENT AUTO 14 % (21-46); MONOCYTES ABSOLUTE AUTO 1.06 K/mm3 (0.16-1.47); MONOCYTES PERCENT AUTO 9 % (4-13); Mean Corpuscular HGB 30.9 pg (26.0-34.0); Mean Corpuscular HGB Conc 32.3 g/dL (31.5-36.5); Mean Corpuscular Volume 96 fL (80-100); Mean Platelet Volume 10.2 fL (9.1-12.4); NEUTROPHILS PERCENT AUTO 72 % (41-73); NRBC ABSOLUTE 0.05 K/mm3 (0.00-0.02); NRBC Auto 0.4 /100 WBC (0.0-0.2); Platelet Count 288 K/mm3 (150-400); RDW Coefficient Variation 15.5 % (11.7-14.2); RDW Standard Deviation 51.8 fL (35.1-46.3); Red Blood Cell Count 2.91 M/mm3 (3.80-5.20); White Blood Cell Count 11.63 K/mm3 (4.00-11.30)
[2022-08-02 05:56] LABS: Bun/Creatinine Ratio 46.9 (12.0-20.0); Calcium, Blood 8.2 mg/dL (8.5-10.1); Creatinine, Blood 0.85 mg/dL (0.40-1.00); Potassium, Blood 3.4 mmol/L (3.5-5.5)
[2022-08-02] MEDS ORDERED: PANT40 PO (12:40)
[2022-08-02 14:28] LABS: Influenza A, PCR NEGATIVE (NEGATIVE); Influenza B, PCR NEGATIVE (NEGATIVE); Resp Syncytial Virus, PCR NEGATIVE (NEGATIVE); SARS-Cov-2 (COVID-19) PCR, MMC NEGATIVE (NEGATIVE)
--- NOTE | 2022-08-02 19:37 | NUR ---
TRANSPORT SUMMARY PT A&OX3, VSS/RA, DEBBIE PO-ATE A LITTLE MORE EACH MEAL TODAY, VOIDING BSC/BEDPAN AND ATTENDS, IV DC'D, DENIES PAIN. POD 7, AQUACEL CHANGED TODAY. STAND PIVOT WITH 2 PP MOD ASSIST TO FOR TRANSPORT TO [facility], WITH ALL PERSONAL POSSESSIONS. REPORT CALLED TO LOENA/SHELLY.
== END 2022-08-02 17:14 | DRG 480 ==
LOC: ER 18:34 → SURS 22:01
PROVIDERS: Emergency Medicine; Internal Medicine; Orthopaedic Surgery; ADMIT Family Medicine
PROC: 0QS636Z Reposition Right Upper Femur with Intramedullary Internal Fixation Device, Percutaneous Approach (ICD-10-PCS; principal; 2022-07-24)
DX: S72.141A Displaced intertrochanteric fracture of right femur, initial encounter for closed fracture (principal); G92.8 Other toxic encephalopathy; N17.9 Acute kidney failure, unspecified; I48.20 Chronic atrial fibrillation, unspecified; E87.1 Hypo-osmolality and hyponatremia; W18.30XA Fall on same level, unspecified, initial encounter; N18.30 Chronic kidney disease, stage 3 unspecified; Z66 Do not resuscitate; Z90.49 Acquired absence of other specified parts of digestive tract; I12.9 Hypertensive chronic kidney disease with stage 1 through stage 4 chronic kidney disease, or unspecified chronic kidney disease; K21.9 Gastro-esophageal reflux disease without esophagitis; F32.A Depression, unspecified; Z85.038 Personal history of other malignant neoplasm of large intestine; Z88.2 Allergy status to sulfonamides; Z88.0 Allergy status to penicillin; Z88.8 Allergy status to other drugs, medicaments and biological substances; Z79.899 Other long term (current) drug therapy; Z79.02 Long term (current) use of antithrombotics/antiplatelets; Z20.822 Contact with and (suspected) exposure to COVID-19
CPT/HCPCS: 0241U; 36415; 36430; 70450; 73502; 80048; 80053; 82947; 85014; 85018; 85025; 85610; 86850; 86900; 86901; 86923; 93005; 93010; 94760; 97110; 97162; 97166; 97530; 97535; 99285-25; A9270; C1713; C1769; C9113; J1100; J2370; J2405; J2704; J2795; J3010; J3430; J7030; J7040; J7050; J7120; P9016

== ENCOUNTER 2022-08-17 09:26 | Inpatient (IN) | payer OTHER ==
[~2022-08-17] VITALS: Ht 152.4 cm; Wt 43.7 kg
[~2022-08-17 09:26] MED LIST changes: +ATOR20 PO; +Coumadin2 MG PO; +DRON400T; +IRON18 MG PO; +LEVSOD75 PO; +METO25ER PO; +VITAMIN D32000 UNIT PO
[2022-08-17 10:14] LABS: Albumin/Globulin Ratio 0.9 (0.8-1.8); Bilirubin, Total 0.4 mg/dL (0.1-1.0); Bun/Creatinine Ratio 45.9 (12.0-20.0); Calcium, Blood 6.8 mg/dL (8.5-10.1); Creatinine, Blood 0.96 mg/dL (0.40-1.00); Globulin, Blood 2.3 g/dL (2.2-4.0); Potassium, Blood 3.7 mmol/L (3.5-5.5); Total Protein, Blood 4.3 g/dL (6.4-8.2)
[2022-08-17 10:17] LABS: BASOPHILS ABSOLUTE AUTO 0.02 K/mm3 (0.00-0.23); BASOPHILS PERCENT AUTO 0 % (0-2); EOSINOPHILS PERCENT AUTO 1 % (0-6); IMMATURE GRAN ABSOLUTE AUTO 0.03 K/mm3 (0.00-0.10); IMMATURE GRAN PERCENT AUTO 0 % (0-1); LYMPHOCYTES ABSOLUTE AUTO 1.63 K/mm3 (0.84-5.20); LYMPHOCYTES PERCENT AUTO 22 % (21-46); MONOCYTES ABSOLUTE AUTO 0.57 K/mm3 (0.16-1.47); MONOCYTES PERCENT AUTO 8 % (4-13); Mean Corpuscular HGB 31.4 pg (26.0-34.0); Mean Corpuscular HGB Conc 30.6 g/dL (31.5-36.5); Mean Corpuscular Volume 103 fL (80-100); Mean Platelet Volume 10.4 fL (9.1-12.4); NEUTROPHILS ABSOLUTE AUTO 4.93 K/mm3 (1.96-9.15); NEUTROPHILS PERCENT AUTO 68 % (41-73); Platelet Count 222 K/mm3 (150-400); RDW Standard Deviation 58.8 fL (35.1-46.3); Red Blood Cell Count 1.75 M/mm3 (3.80-5.20); White Blood Cell Count 7.28 K/mm3 (4.00-11.30)
[2022-08-17 10:38] LABS: Prothrombin Time Results 45.2 Sec (9.7-11.5)
[2022-08-17 10:45] LABS: Hemoglobin 5.5 g/dL (11.5-16.0)
[2022-08-17 11:09] LABS: International Normalized Ratio 4.77
[2022-08-17 16:58] LABS: Hemoglobin 9.4 g/dL (11.5-16.0)
--- NOTE | 2022-08-17 18:33 | NUR ---
Dr. Fu here to see the patient. Clear liquid diet until lunchtime tomorrow, after which she will be NPO for EGD in the afternoon. Pt requested phone call to her , which I helped her with. She updated her Adriano on the plan for tomorrow.
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
[2022-08-17] MEDS ORDERED: Seroquel Xr50 MG PO (21:03)
[2022-08-17] MEDS ORDERED: MELA3 PO (21:04)
[2022-08-17] MEDS ORDERED: CIPR500 PO (21:08)
[2022-08-17] MEDS ORDERED: Acetaminophen650 M1 PO (21:10)
[2022-08-17 23:21] LABS: Hematocrit 25.1 % (33.0-51.0); Hemoglobin 8.5 g/dL (11.5-16.0)
[2022-08-18 06:07] LABS: Hematocrit 23.9 % (33.0-51.0); Hemoglobin 8.1 g/dL (11.5-16.0); Mean Corpuscular HGB 31.3 pg (26.0-34.0); Mean Corpuscular HGB Conc 33.9 g/dL (31.5-36.5); Mean Platelet Volume 9.6 fL (9.1-12.4); Platelet Count 184 K/mm3 (150-400); RDW Coefficient Variation 17.6 % (11.7-14.2); RDW Standard Deviation 57.1 fL (35.1-46.3); Red Blood Cell Count 2.59 M/mm3 (3.80-5.20); White Blood Cell Count 8.93 K/mm3 (4.00-11.30)
[2022-08-18 06:21] LABS: International Normalized Ratio 1.18; Prothrombin Time Results 12.3 Sec (9.7-11.5)
[2022-08-18 06:29] LABS: Mean Corpuscular Volume 92 fL (80-100)
[2022-08-18 06:44] LABS: Bun/Creatinine Ratio 46.7 (12.0-20.0); Calcium, Blood 7.6 mg/dL (8.5-10.1); Creatinine, Blood 0.81 mg/dL (0.40-1.00); Potassium, Blood 3.3 mmol/L (3.5-5.5)
[2022-08-18 09:21] LABS: Albumin, Blood 2.2 g/dL (3.4-5.0); Magnesium, Blood 1.2 mg/dL (1.6-2.4); Phosphorus, Blood 2.1 mg/dL (2.5-4.9)
[2022-08-18 10:12] LABS: SARS-Cov-2 (COVID-19) PCR, MMC NEGATIVE (NEGATIVE)
[2022-08-18 14:02] LABS: Source, Urine Straight Cath
[2022-08-18 14:41] LABS: Appearance, Urine Hazy (Clear); Bilirubin, Urine Neg (Neg); Blood, Urine 3+ (Neg); Color, Urine Yellow (P-Yellow); Glucose Qualitative, Urine Neg (Neg); Ketones, Urine Neg (Neg); Leukocyte Esterase, Urine 3+ (Neg); Nitrite, Urine Neg (Neg); Protein, Urine Neg (Neg); Specific Gravity, Urine 1.015 (1.003-1.022); Urobilinogen, Urine NORM (Normal)
--- NOTE | 2022-08-18 15:47 | NUR ---
Spiritual Care Request. Pt. is awake in bed and recognizes this casting machine control board operator from a a previous visit. Spouse is present. Pt. is unsettled by an upcoming procedure. Listen empatheticially and normalize the Pt. experience. Rapport is re-established. Pryaed with Pt. and will remain available to Pt. and spouse.
[2022-08-18 15:49] LABS: Other Crystals Mod /hpf
[2022-08-18 15:50] LABS: White Blood Cells, Urine 50-100 /hpf (0-5)
[2022-08-18 15:52] LABS: Bacteria Many /hpf; Squamous Epithelial Cells Few /hpf (Few)
--- NOTE | 2022-08-18 16:22 | NUR ---
08/18/22 1621 Andrew Chowdary History, Chart, Medications and Allergies reviewed before start of procedure.MONITOR INTACT WITH CONTINUOUS PULSE OXIMETRY AND INTERMITTENT BP.3-LEAD EKG REVIEWED WITH PHYSICIAN PRIOR TO START OF PROCEDURE.O2 VIA POM INTACT THROUGHOUT SEDATION/PROCEDURE. See Anesthesia record.
--- NOTE | 2022-08-18 17:47 | NUR ---
SHIFT SUMMARY PT PLEASANTLY CONFUSED DURING SHIFT ABOUT "WHAT WAS GOING ON" AND WHERE HER WAS. RESPONDED WELL TO REDIRECTION AND EXPLAINATION WELL CALMING CONVERSATION. PT WAS ABLE TO GET UP IN BEDSIDE RECLINER FOR BREAKFAST AND LUNCH. VSS. PT HAD SEVERAL LOOSE, DARK BLACK/BROWN STOOLS. PT IN FOR EGD TODAY. HAS BEEN AT BEDSIDE VISITING SINCE THIS AFTERNOON. NO ACUTE CHANGES DURING SHIFT. CALL LIGHT IN REACH AND BED IN LOW POSITION, BED ALARM ON.
[2022-08-18 19:02] LABS: Hematocrit 25.6 % (33.0-51.0); Hemoglobin 7.9 g/dL (11.5-16.0)
--- NOTE | 2022-08-19 01:25 | NUR ---
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 SHE WAS ANXIOUS ABOUT BEING IN THE HOSPITAL AND ABOUT THE FREQUENCY OF HER STOOLS OVERNIGHT. SHE HAD MULTIPLE SMALL TO MEDIUM LOOSE BLACK STOOLS THAT EVENTUALLY TOOK ON A PASTY CONSISTENCY. CHRISTIANO'S DID ENDORSE THAT THE PATIENT DOES NOT SLEEP WELL AT HOME. SHE SLEEPS IN SPURTS. SHE WAS RECENTLY STARTED ON SEROQUEL AT [facility]. I DID REACH OUT TO [facility] AND OBTAINED A COPY OF THE PATIENT'S MEDICATION ADMINISTRATION RECORD. I UPDATED THE MEDICATION RECONCILIATION AND RECEIVED AN ORDER FOR SEROQUEL. THE SEROQUEL, HOWEVER, DID NOT SEEM TO DO ANYTHING TO ASSIST WITH SLEEP OR REDUCING HER RESTLESSNESS. MRS. REYES IS PLEASANTLY CONFUSED, OFTEN ASKING FOR HER , AND THEN EASILY REDIRECTED. SHE IS KIND TO AND APPRECIATIVE OF STAFF.
[2022-08-19 04:08] LABS: BASOPHILS ABSOLUTE AUTO 0.02 K/mm3 (0.00-0.23); BASOPHILS PERCENT AUTO 0 % (0-2); EOSINOPHILS ABSOLUTE AUTO 0.11 K/mm3 (0.00-0.68); EOSINOPHILS PERCENT AUTO 1 % (0-6); Hemoglobin 7.5 g/dL (11.5-16.0); IMMATURE GRAN ABSOLUTE AUTO 0.07 K/mm3 (0.00-0.10); IMMATURE GRAN PERCENT AUTO 1 % (0-1); LYMPHOCYTES ABSOLUTE AUTO 1.11 K/mm3 (0.84-5.20); LYMPHOCYTES PERCENT AUTO 11 % (21-46); MONOCYTES ABSOLUTE AUTO 0.71 K/mm3 (0.16-1.47); MONOCYTES PERCENT AUTO 7 % (4-13); Mean Corpuscular HGB 31.1 pg (26.0-34.0); Mean Corpuscular HGB Conc 32.6 g/dL (31.5-36.5); Mean Corpuscular Volume 95 fL (80-100); Mean Platelet Volume 10.2 fL (9.1-12.4); NEUTROPHILS ABSOLUTE AUTO 7.84 K/mm3 (1.96-9.15); NEUTROPHILS PERCENT AUTO 80 % (41-73); Platelet Count 186 K/mm3 (150-400); RDW Coefficient Variation 17.2 % (11.7-14.2); RDW Standard Deviation 57.4 fL (35.1-46.3); Red Blood Cell Count 2.41 M/mm3 (3.80-5.20); White Blood Cell Count 9.86 K/mm3 (4.00-11.30)
[2022-08-19 04:27] LABS: International Normalized Ratio 1.18; Prothrombin Time Results 12.3 Sec (9.7-11.5)
[2022-08-19 04:38] LABS: Albumin, Blood 2.5 g/dL (3.4-5.0); Bilirubin, Total 0.7 mg/dL (0.1-1.0); Bun/Creatinine Ratio 36.7 (12.0-20.0); Calcium, Blood 7.5 mg/dL (8.5-10.1); Creatinine, Blood 0.68 mg/dL (0.40-1.00); Globulin, Blood 2.6 g/dL (2.2-4.0); Magnesium, Blood 1.7 mg/dL (1.6-2.4); Phosphorus, Blood 3.7 mg/dL (2.5-4.9); Potassium, Blood 4.4 mmol/L (3.5-5.5); Total Protein, Blood 5.1 g/dL (6.4-8.2)
--- NOTE | 2022-08-19 05:40 | NUR ---
SHIFT SUMMARY ASSUMED CARE OF PT AT 1900. PT IS ALERT BUT NOT ORIENTED AT ALL. PT KNEW SHE HAD A PROCEDURE TODAY BUT COULD NOT ANSWER ANY QUESTIONS. PT WOULD REPEAT HERSELF OVER MULTIPLE TIMES. HEART SOUNDS IRREGULAR, LUNG SOUNDS CLEAR. PT STILL HAD LOOSE BLACK STOOL. PT WAS INCONTINENT OF UNRINE AND BOWEL. PT WOULD ATTEMPT TO GET OUT OF BED MULTIPLE TIMES AND WAS MOST COMFORTABLE BEING PERPENDICULAR IN THE BED. PT WOULD THROW PILLOW ON THE GROUND AND ASK WEHRE HER PILLOW WENT. AT THE STAR OF SHIFT PT WAS CRYING OUT AND HALLUCINATING. HOSPITALIST NOTIFED AND REVEIWED CHART BEFORE ORDERING MORE SEROQUEL, ONE TIME. WHICH HELPED PT TO CALM DOWN BUT PT STILL DID NOT SLEEP ALL NIGHT.
--- NOTE | 2022-08-19 16:37 | NUR ---
Spiritual Care Visit. Pt. is in her recliner near the nurses station and welcomes my visit. Pt. had a procedure the previous day. Pt. displays evidence of dry mouth and slurred speech, but otherwise communicates cogently. Spoke of rosalind and belief. Pt. displays evidence of being positive. Prayed with Pt. near the nurses station. Pt. verbalized gratitude for the spiritual care visit.
--- NOTE | 2022-08-19 18:08 | NUR ---
SHIFT SUMMARY PT LETHARGIC THIS AM, BUT OPENS EYES TO VERBAL STIMULI AND ANSWERS QUESTIONS; ALTHOUGH QUICKY FALLS BACK ASLEEP. PT STATES "I AM SO TIRED". SLEPT MOST OF THE SHIFT. RECIEVED 1 UNIT PRBC'S. TOLERATED WELL. VSS THROUGHOUT SHIFT. PT REPOSITIONED AND CHANGED ATTENDS. PT UP FOR DINNER; ALERT AND INTERACTIVE. IN TO VISIT THIS AFTERNOON AND THIS EVENING.
--- NOTE | 2022-08-19 23:46 | NUR ---
PT HAS BEEN DROWSY, EASILY AROUSABLE TO NOISE. ORIENTED TO SELF. CONFUSED BUT SMILING, AND COMPLIMENTING STAFF OF CARE SHE IS GETTING. NO ACUTE CHANGES AT THIS TIME. VSS. TAKES PO PILLS WHOLE WITH WATER, NO DIFFICULTY SWALLOWING. PT RESTING COMFORTABLY IN BED WITH EYES CLOSED. APPEAR TO BE SLEEPING. BED ALARM ON. CALL LIGHT IN REACH.
[2022-08-20 03:32] LABS: Hematocrit 27.7 % (33.0-51.0); Hemoglobin 9.1 g/dL (11.5-16.0); Mean Corpuscular HGB 31.5 pg (26.0-34.0); Mean Corpuscular HGB Conc 32.9 g/dL (31.5-36.5); Mean Corpuscular Volume 96 fL (80-100); Mean Platelet Volume 10.4 fL (9.1-12.4); Platelet Count 173 K/mm3 (150-400); RDW Coefficient Variation 17.6 % (11.7-14.2); Red Blood Cell Count 2.89 M/mm3 (3.80-5.20); White Blood Cell Count 8.07 K/mm3 (4.00-11.30)
[2022-08-20 03:51] LABS: Bun/Creatinine Ratio 20.2 (12.0-20.0); Calcium, Blood 7.3 mg/dL (8.5-10.1); Creatinine, Blood 0.79 mg/dL (0.40-1.00); Magnesium, Blood 1.9 mg/dL (1.6-2.4); Phosphorus, Blood 2.7 mg/dL (2.5-4.9)
--- NOTE | 2022-08-20 05:54 | NUR ---
PT HAS SLEPT THOUGHOUT NIGHT WITHOUT ANY SIGNS OF DISTRESS. AROUSES EASILY. PLEASENT WHEN WAKING. BRIEF CHANGED FOR INCONTINENT URINE. PROTONIX GTT CONTINUES TO INFUSE. VSS.
--- NOTE | 2022-08-20 18:42 | NUR ---
SHIFT SUMMARY S/P GI BLEED, ALERT BUT PLEASANTLY CONFUSED, NOT IMPULSIVE THOUGH BED ALARM ON FOR SAFETY, TOLERATING DIET, AMBULATES HORT DISTANCES WITH 1 PERSON ASSIST, DENIES PAIN, WORKED WITH PHYSICAL THERAPY TODAY AND DID WELL COMPARED TO THE PRIOR SESSION, REPORTS WANTING HER TO GO HOME INSTEAD OF REHAB WHICH WAS RELAYED TO THE PHYSICIAN TO DISCUSS WITH THEM. NO ACUTE EVENTS THIS SHIFT. CALL LIGHT IN REACH, WILL CTM AND REPORT TO ONCOMING NOC RN.
[2022-08-21 03:56] LABS: Hemoglobin 9.2 g/dL (11.5-16.0); Mean Corpuscular HGB 31.7 pg (26.0-34.0); Mean Corpuscular HGB Conc 32.9 g/dL (31.5-36.5); Mean Corpuscular Volume 97 fL (80-100); Mean Platelet Volume 10.5 fL (9.1-12.4); Platelet Count 176 K/mm3 (150-400); RDW Coefficient Variation 17.9 % (11.7-14.2); White Blood Cell Count 6.75 K/mm3 (4.00-11.30)
[2022-08-21 04:26] LABS: Bun/Creatinine Ratio 14.2 (12.0-20.0); Calcium, Blood 7.5 mg/dL (8.5-10.1); Creatinine, Blood 0.77 mg/dL (0.40-1.00); Potassium, Blood 3.7 mmol/L (3.5-5.5)
--- NOTE | 2022-08-21 04:33 | NUR ---
SHIFT SUMMARY: ORIENTED TO SELF ONLY. SLEEPING BUT EASY TO AROUSE. VSS. NO COMPLAINTS OF SOB OR CHEST PAIN. INCONTINENT OR URINE, JEWEL CARE PERFORMED. TAKES PILLS WHOLE WITH WATER WITHOUT COUGHING OR CHOKING.
--- NOTE | 2022-08-21 18:13 | NUR ---
PT ALERT, SHE IS INTERMITTENTANTLY OREINTED X3, SHE DOES GET CONFUSED IT PERTAINS TO HER SPOUSE. PT CALM AND COOPERATIVE T/O THE DAY. PT WAS UP TO BEDSIDE COMMODE WITH LOOSE BROWN STOOL, NO FURTHER BLOODY STOOLS NOTED TODAY. PT BEGAN THE SHIFT A 1 PERSON ASSIST BUT SHE CAN BE VERY IMPULSIVE AND CAN BE RELUCTANT TO FOLLOW DIRECTIONS A 2 PERSON IS SUGGESTED FOR SAFETY. PT TOLERATING DIET WELL. VSS. DENIES ABD PAIN
[2022-08-22 04:48] LABS: BASOPHILS ABSOLUTE AUTO 0.02 K/mm3 (0.00-0.23); BASOPHILS PERCENT AUTO 0 % (0-2); EOSINOPHILS ABSOLUTE AUTO 0.09 K/mm3 (0.00-0.68); EOSINOPHILS PERCENT AUTO 1 % (0-6); Hematocrit 28.3 % (33.0-51.0); Hemoglobin 9.6 g/dL (11.5-16.0); IMMATURE GRAN ABSOLUTE AUTO 0.05 K/mm3 (0.00-0.10); IMMATURE GRAN PERCENT AUTO 1 % (0-1); LYMPHOCYTES ABSOLUTE AUTO 1.25 K/mm3 (0.84-5.20); LYMPHOCYTES PERCENT AUTO 15 % (21-46); MONOCYTES ABSOLUTE AUTO 0.89 K/mm3 (0.16-1.47); MONOCYTES PERCENT AUTO 11 % (4-13); Mean Corpuscular HGB 31.9 pg (26.0-34.0); Mean Corpuscular HGB Conc 33.9 g/dL (31.5-36.5); Mean Corpuscular Volume 94 fL (80-100); Mean Platelet Volume 10.6 fL (9.1-12.4); NEUTROPHILS ABSOLUTE AUTO 6.04 K/mm3 (1.96-9.15); NEUTROPHILS PERCENT AUTO 72 % (41-73); Platelet Count 164 K/mm3 (150-400); RDW Coefficient Variation 17.5 % (11.7-14.2); RDW Standard Deviation 56.8 fL (35.1-46.3); Red Blood Cell Count 3.01 M/mm3 (3.80-5.20); White Blood Cell Count 8.34 K/mm3 (4.00-11.30)
[2022-08-22 05:17] LABS: Bun/Creatinine Ratio 11.2 (12.0-20.0); Calcium, Blood 7.5 mg/dL (8.5-10.1); Creatinine, Blood 0.8 mg/dL (0.40-1.00); Magnesium, Blood 1.3 mg/dL (1.6-2.4); Phosphorus, Blood 2.5 mg/dL (2.5-4.9); Potassium, Blood 3.8 mmol/L (3.5-5.5)
--- NOTE | 2022-08-22 07:11 | NUR ---
SHIFT SUMMARY: ORIENTED TO SELF ONLY. CONFUSED BUT REDIRECTABLE. O2 SATS > 90% ON RA. NO COMPLAINTS OF SOB OR CHEST PAIN. NO ACUTE CHANGES DURING SHIFT. PROTONIX GTT INFUSING PER ORDERS.
[2022-08-22 10:31] LABS: SARS-Cov-2 (COVID-19) PCR, MMC NEGATIVE (NEGATIVE)
--- NOTE | 2022-08-22 14:25 | NUR ---
DISCHARGE PT DISCHARGED BACK TO [facility]. PT CONFUSED AT BASELINE BUT PLEASANT. NO COMPLAINTS THIS SHIFT. REPORT CALLED TO [facility].
== END 2022-08-22 13:42 | DRG 356 ==
LOC: ER 09:26 → PCU 11:57 → ICUW 11:57 → PCU 13:02
PROVIDERS: Family Medicine; Hospitalist; Nurse Practitioner Acute Care; Student in an Organized Health Care Education/Training Program; ADMIT Internal Medicine
PROC: 0W3P4ZZ Control Bleeding in Gastrointestinal Tract, Percutaneous Endoscopic Approach (ICD-10-PCS; principal; 2022-08-18 15:00)
PROC: 30233L1 Transfusion of Nonautologous Fresh Plasma into Peripheral Vein, Percutaneous Approach (ICD-10-PCS; 2022-08-19)
PROC: 30233N1 Transfusion of Nonautologous Red Blood Cells into Peripheral Vein, Percutaneous Approach (ICD-10-PCS; 2022-08-19)
PROC: 30233K1 Transfusion of Nonautologous Frozen Plasma into Peripheral Vein, Percutaneous Approach (ICD-10-PCS; 2022-08-19)
DX: K26.4 Chronic or unspecified duodenal ulcer with hemorrhage (principal); R57.8 Other shock; D62 Acute posthemorrhagic anemia; I48.92 Unspecified atrial flutter; I48.20 Chronic atrial fibrillation, unspecified; N39.0 Urinary tract infection, site not specified; Z20.822 Contact with and (suspected) exposure to COVID-19; K44.9 Diaphragmatic hernia without obstruction or gangrene; I12.9 Hypertensive chronic kidney disease with stage 1 through stage 4 chronic kidney disease, or unspecified chronic kidney disease; E83.42 Hypomagnesemia; E87.6 Hypokalemia; N18.30 Chronic kidney disease, stage 3 unspecified; K21.9 Gastro-esophageal reflux disease without esophagitis; F32.A Depression, unspecified; R47.1 Dysarthria and anarthria; F03.90 Unspecified dementia, unspecified severity, without behavioral disturbance, psychotic disturbance, mood disturbance, and anxiety; R79.1 Abnormal coagulation profile; E83.39 Other disorders of phosphorus metabolism; B96.20 Unspecified Escherichia coli [E. coli] as the cause of diseases classified elsewhere; R41.0 Disorientation, unspecified; Z51.5 Encounter for palliative care; Z66 Do not resuscitate; Z85.038 Personal history of other malignant neoplasm of large intestine; Z88.0 Allergy status to penicillin; Z88.8 Allergy status to other drugs, medicaments and biological substances; Z88.2 Allergy status to sulfonamides; Z88.7 Allergy status to serum and vaccine; Z79.01 Long term (current) use of anticoagulants; Z79.899 Other long term (current) drug therapy
CPT/HCPCS: 36415; 36430; 71045; 80048; 80053; 81001; 82040; 82272; 82330; 83735; 84100; 84484; 85014; 85018; 85025; 85027; 85610; 85730; 86850; 86900; 86901; 86923; 87086; 93005; 93010; 96361; 96365; 96375; 96376; 97110; 97162; 97530; 99285-25; A9270; C9113; J0171; J0696; J2704; J3430; J3475; J7030; J7060; J7120; P9016; U0004

== ENCOUNTER 2022-09-07 09:33 | Observation (INO) | payer OTHER ==
[~2022-09-07] VITALS: Ht 149.9 cm; Wt 34.4 kg
[~2022-09-07 09:33] MED LIST changes: +Acetaminophen650 M1 PO; +MELA3 PO; +Seroquel Xr50 MG PO
[2022-09-07 09:49] LABS: BASOPHILS ABSOLUTE AUTO 0.05 K/mm3 (0.00-0.23); BASOPHILS PERCENT AUTO 1 % (0-2); EOSINOPHILS ABSOLUTE AUTO 0.14 K/mm3 (0.00-0.68); EOSINOPHILS PERCENT AUTO 2 % (0-6); Hematocrit 36.2 % (33.0-51.0); Hemoglobin 11.4 g/dL (11.5-16.0); IMMATURE GRAN ABSOLUTE AUTO 0.03 K/mm3 (0.00-0.10); IMMATURE GRAN PERCENT AUTO 1 % (0-1); LYMPHOCYTES ABSOLUTE AUTO 1.66 K/mm3 (0.84-5.20); LYMPHOCYTES PERCENT AUTO 27 % (21-46); MONOCYTES ABSOLUTE AUTO 0.71 K/mm3 (0.16-1.47); MONOCYTES PERCENT AUTO 11 % (4-13); Mean Corpuscular HGB Conc 31.5 g/dL (31.5-36.5); Mean Corpuscular Volume 95 fL (80-100); Mean Platelet Volume 9.5 fL (9.1-12.4); NEUTROPHILS ABSOLUTE AUTO 3.66 K/mm3 (1.96-9.15); NEUTROPHILS PERCENT AUTO 59 % (41-73); Platelet Count 301 K/mm3 (150-400); RDW Coefficient Variation 15.7 % (11.7-14.2); RDW Standard Deviation 54.9 fL (35.1-46.3); White Blood Cell Count 6.25 K/mm3 (4.00-11.30)
[2022-09-07 10:18] LABS: Alanine Aminotransfer (ALT/SGP 13 U/L (12-78); Albumin/Globulin Ratio 0.9 (0.8-1.8); Alk Phos 131 U/L (50-136); Anion Gap 6 mmol/L (6-16); Aspartate Aminotrans (AST/SGOT 15 U/L (12-37); Bilirubin, Total 0.5 mg/dL (0.1-1.0); Blood Urea Nitrogen 13 mg/dL (8-24); Bun/Creatinine Ratio 13.4 (12.0-20.0); CO2, Blood 31 mmol/L (21-32); Calcium, Blood 8.7 mg/dL (8.5-10.1); Chloride, Blood 108 mmol/L (98-108); Creatinine, Blood 0.97 mg/dL (0.40-1.00); Ethanol (Alcohol), Blood, Med <3 mg/dL; Globulin, Blood 3.4 g/dL (2.2-4.0); Glomerular Filtration Rate 56 (60-); Glucose, Blood 105 mg/dL (70-99); Potassium, Blood 3.3 mmol/L (3.5-5.5); Sodium, Blood 145 mmol/L (136-145); Total Protein, Blood 6.4 g/dL (6.4-8.2)
--- NOTE | 2022-09-07 13:07 | NUR ---
Spoke with [facility] and discussed case. 86 year old female being admitted to the hospital under comfort care due to significant stroke. Family at bedside. Pt resting on gurney upon arrival. Pt is minimally verbal with attempts to speak but words are jumbled and incoharent. Pt appears weak and frail. No S/S of distress at this time. Pt's spouse Min is at bedside. Listened as Min reports being to Pt for 46 years. Pt had one daughter who 5 years ago due to lung cancer. No children together. Engaged in therapeutic discussion regarding goals of care. Min confirms wishes to focus on comfort and hospice services. Educated on comfort care and hospice philosophy. Min reports Pt recently D/C for [facility] and would like Pt to go back there on hospice services. Min reports no preference of hospice agencies and states who ever [facility] recommends. Placed comfort care order and comfort care order set per V/O from [facility]. Palliative Care will remain available for symptom management and supportive visits.
--- NOTE | 2022-09-07 15:05 | NUR ---
PT ARRIVED TO UNIT FROM ER @ THIS TIME. SLIDE TRANSFER, UNABLE TO RESPOND TO VERBAL. APPEARS COMFORTABLE, NO GRIMAGE, RELAXED. PLAN FOR COMFORT CARE MEASURES
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
--- NOTE | 2022-09-07 23:36 | NUR ---
Inserted best catheter- Patient tolerated well Patient non verbal- no s/s distress- Patient repositioned
--- NOTE | 2022-09-08 00:29 | NUR ---
Patient repositioned, no s/s distress/pain
--- NOTE | 2022-09-08 03:43 | NUR ---
PT'S RESPIRATIONS ARE INCREASED TO 40/MIN- PT HAS FROWN ON FACE- WILL MEDICATE FOR BOTH- APPLIED WET WASH CLOTH TO FOREHEAD
--- NOTE | 2022-09-08 05:42 | NUR ---
PT CARE AND COMFORT- [facility]M CATH PLACED AT BEGIN OF SHIFT- PT TOLERATED WELL MEDICATED X1 PER SHIFT FOR INCREASED RESPIRATIONS AND GRIMACING- PT'S RESP DECREASED AND APPEARED TO BE COMFORTABLE, MOUTH CARE AND REPOSITIONED T/O NIGHT
--- NOTE | 2022-09-08 14:00 | NUR ---
Comfort Care Visit Pt resting in bed with her eyes closed. Pt appears comfortable with no S/S of distress at this time. Pt's spouse Min at bedside. Offered supportive visit and answered questions. Palliative Care will remain available.
--- NOTE | 2022-09-08 17:22 | NUR ---
PERSONAL CARE ORAL AND [facility]OLM CARE GIVEN. REPOSITIONED. MEDICATED.
--- NOTE | 2022-09-08 17:23 | NUR ---
Shift Summary Patient on comfort care. Appears to be comfortable. Oral care PRN. Reposition as needed for comfort. SO at bedside throughout the day. Roxanol given once. Offered, SO declined.
--- NOTE | 2022-09-08 18:23 | NUR ---
Pt appears comfortable, her has remained at bedside for most of today and agrees with bedside RN; pt appears comfortable and has needed little medication today. No changes needed to care plan at this time.
--- NOTE | 2022-09-09 03:22 | NUR ---
PATIENT APPEARED COMFORTABLE OVERNIGHT. SHE TOLERATED TURNING Q2 HOURS WITHOUT S/S OF ANXIETY OR PAIN. ORAL CARE WAS DIFFICULT PATIENT HAS TEETH AND WOULD CLAMP DOWN EACH TIME WE ATTEMPTED TO SWAB BEYOND HER GUMS OR FRONT OF TEETH. ONE EPISODE OF PATIENT LEAKING A GREAT DEAL AROUND HOLM CATHETER WHILE HOLM WAS DRAINING AT THE SAME TIME. CATHETER WAS RESEATED A PRECAUTION. NO MEDICATIONS GIVEN OVERNIGHT.
--- NOTE | 2022-09-09 10:09 | NUR ---
Comfort Care Visit Pt resting in bed with her eyes opened. Pt does not repond verbally but does track slightly with her eyes. Pt appears comfortable with no S/S of distress. No family at bedside at this time. Spoke with Primary RN Marsha and discussed case. Palliative Care will remain available.
[2022-09-09] MEDS ORDERED: ATROPINE S0.4 MG/1 M SL (14:10)
[2022-09-09] MEDS ORDERED: Ativan1 MG PO (14:10)
[2022-09-09] MEDS ORDERED: TRANSDERM-SCOP1 EA10 TD (14:11)
[2022-09-09] MEDS ORDERED: ONDA4ODT MM (14:11)
[2022-09-09] MEDS ORDERED: MORP20L SL (14:11)
[2022-09-09 14:40] LABS: SARS-Cov-2 (COVID-19) PCR, MMC NEGATIVE (NEGATIVE)
--- NOTE | 2022-09-09 16:13 | NUR ---
Discharge Summary A/O to self. Nonverbal. Following some simple commands. D/C to [facility] on hospice with Caleb. Report called to receiving nurse Shelly. Hard scripts x 2 placed in yellow folder and will be given to transporter. at bedside and is aware of transfer.
--- NOTE | 2022-09-10 09:50 | NUR ---
CALL RECEIVED from [facility] requesting hospice and d/c orders from yesterday be faxed to them as they had not been received yet and hospice admit is scheduled for pt today at [facility]. 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
== END 2022-09-09 18:18 ==
LOC: ER 09:33 → ERHOLD 09:34 → MEDS 14:59
PROVIDERS: Student in an Organized Health Care Education/Training Program; ADMIT Hospitalist
DX: I63.511 Cerebral infarction due to unspecified occlusion or stenosis of right middle cerebral artery (principal); R47.01 Aphasia; I12.9 Hypertensive chronic kidney disease with stage 1 through stage 4 chronic kidney disease, or unspecified chronic kidney disease; N18.30 Chronic kidney disease, stage 3 unspecified; K21.9 Gastro-esophageal reflux disease without esophagitis; I48.91 Unspecified atrial fibrillation; Z88.0 Allergy status to penicillin; Z88.2 Allergy status to sulfonamides; Z88.7 Allergy status to serum and vaccine; Z90.49 Acquired absence of other specified parts of digestive tract; Z79.01 Long term (current) use of anticoagulants; Z66 Do not resuscitate; Z85.038 Personal history of other malignant neoplasm of large intestine; Z20.822 Contact with and (suspected) exposure to COVID-19
CPT/HCPCS: 36415; 51702; 70450; 70496; 70498; 80053; 82947; 83735; 85025; 85730; 93005; 93010; A9270; G0378; G0480; Q9967; U0004